=== PATIENT | female | born 1975 | race Caucasian/White ===

== ENCOUNTER → 2019-08-04 | Outpatient (CLI) | payer BC | END | disposition home or self-care (01) | LOC: LABPAT 11:41 | PROVIDERS: ATTEND Obstetrics & Gynecology | DX: Z53.9 Procedure and treatment not carried out, unspecified reason (principal) ==

== ENCOUNTER 2019-08-09 07:51 | Observation (INO) | payer BC ==
[2019-08-04 12:29] LABS: Basophils # (A) 0.1 k/uL (0-0.2); Basophils % (A) 1 %; Eosinophils # (A) 0.2 k/uL (0-0.7); Eosinophils % (A) 3 %; HCT 40.1 % (34.0-46.0); HGB 13.3 gm/dL (11.4-16.0); Lymphocytes # (A) 1.5 k/uL (1.0-4.8); Lymphocytes % (A) 18 %; MCH 29.7 pg (25.0-35.0); MCHC 33.2 g/dL (31.0-37.0); MCV 89.5 fL (80.0-100.0); Mean Platelet Volume 5.7; Monocytes # (A) 0.4 k/uL (0-1.0); Monocytes % (A) 5 %; Neutrophils % (A) 72 %; Platelet Count 425 k/uL (150-450); RBC 4.48 m/uL (3.80-5.40); RDW 13.7 % (11.5-15.5); WBC 8.3 k/uL (3.8-10.6)
[2019-08-04 12:49] LABS: African American GFR (CKD) >90 (>60 ml/min/1.73 sqM); Anion Gap 9 mmol/L; Blood Urea Nitrogen 10 mg/dL (7-17); Calcium 9.9 mg/dL (8.4-10.2); Carbon Dioxide 30 mmol/L (22-30); Chloride 100 mmol/L (98-107); Glucose 92 mg/dL (74-99); Potassium 4.2 mmol/L (3.5-5.1); Sodium 139 mmol/L (137-145)
[~2019-08-09 07:51] MED LIST: DEXAMETHASONE SOD PHOSPHATE 10 MG/ML 1 ML VIAL IV ONE; LIDOCAINE 1% 20 ML VIAL (10MG/ML) FOR IV START INTRADERMA PRN; fentaNYL (PF) 50 MCG/ML 2 ML AMP IV PRN
--- NOTE | 2019-08-09 07:57 | P.HPOB ---
History of Present Illness H&P Date: 08/09/19 Chief Complaint: Pelvic pain, menorrhagia 43-year-old presents for total laparoscopic hysterectomy with da Farheen and diagnostic cystoscopy. She's been having pelvic pain, dysmenorrhea and menorrhagia. Diagnosed with adenomyosis by ultrasound and MRI. Review of Systems All systems: negative Constitutional: Denies chills, Denies fever Eyes: denies blurred vision, denies pain Ears, nose, mouth and throat: Denies headache, Denies sore throat Cardiovascular: Denies chest pain, Denies shortness of breath Respiratory: Denies cough Gastrointestinal: Denies abdominal pain, Denies diarrhea, Denies nausea, Denies vomiting Genitourinary: Denies dysuria, Denies hematuria Musculoskeletal: Denies myalgias Integumentary: Denies pruritus, Denies rash Neurological: Denies numbness, Denies weakness Psychiatric: Denies anxiety, Denies depression Endocrine: Denies fatigue, Denies weight change Past Medical History Past Medical History: Hypertension, Thyroid Disorder Additional Past Medical History / Comment(s): varicose veins, anemia (has had iron infusion), hx iodine radiation tx for thyroid,. Obstetric history: She's had 4 pregnancies, 1 spontaneous , 3 vaginal deliveries. History of Any Multi-Drug Resistant Organisms: None Reported Past Surgical History: Appendectomy, Cholecystectomy, Tonsillectomy, Tubal Ligation Additional Past Surgical History / Comment(s): D&C, Past Anesthesia/Blood Transfusion Reactions: Motion Sickness Smoking Status: Never smoker - Past Family History Mother Family Medical History: No Reported History Medications and Allergies Home Medications Medication Instructions Recorded Confirmed Type Ergocalciferol [Vitamin D2] 50,000 unit PO TH 08/06/19 08/06/19 History Hydrochlorothiazide 50 mg PO QAM 08/06/19 08/06/19 History Ibuprofen 200 mg PO DIRECTED PRN 08/06/19 08/06/19 History Allergies Allergy/AdvReac Type Severity Reaction Status Date / Time mold Allergy sinus Verified 08/06/19 08:14 pollen extracts Allergy sinus Verified 08/06/19 08:14 ragweed pollen Allergy sinus Verified 08/06/19 08:14 Exam Osteopathic Statement: *. No significant issues noted on an osteopathic structural exam other than those noted in the History and Physical/Consult. Heart: Regular rate and rhythm Lungs: Clear to auscultation bilaterally Abdomen: Soft, nontender Extremities: Negative Homans sign Results Result Diagrams: 08/04/19 11:50 08/04/19 11:50 Assessment and Plan (1) Pelvic pain Current Visit: Yes Status: Acute Code(s): R10.2 - PELVIC AND PERINEAL PAIN SNOMED Code(s): 85284745 (2) Menorrhagia Current Visit: Yes Status: Acute Code(s): N92.0 - EXCESSIVE AND FREQUENT MENSTRUATION WITH REGULAR CYCLE SNOMED Code(s): 795321820 (3) Adenomyosis Current Visit: Yes Status: Acute Code(s): N80.9 - ENDOMETRIOSIS, UNSPECIFIED SNOMED Code(s): 093623380 Plan: 1. Total laparoscopic hysterectomy with da Farheen, diagnostic cystoscopy.
[2019-08-09] MEDS: ONDANSETRON 4 MG/2 ML VIAL IVP ONE ×2 (08:19→11:39)
[2019-08-09] MEDS: LACTATED RINGERS 1,000 ML IV SCH ×2 (08:19→14:33)
[2019-08-09] MEDS ORDERED: MIDAZOLAM 2 MG/2 ML VIAL IVP ONE (08:30)
[2019-08-09] MEDS ORDERED: PROPOFOL 10 MG/ML 20 ML VIAL IV ONE (09:38)
[2019-08-09] MEDS ORDERED: fentaNYL (PF) 50 MCG/ML 2 ML AMP ONE (09:38)
[2019-08-09] MEDS ORDERED: LIDOCAINE 1% INJ 10MG/ML (20 ML MDV) ONE (09:38)
[2019-08-09] MEDS ORDERED: HYDROmorphone (PF) 1 MG/ML ONE (09:38)
[2019-08-09] MEDS ORDERED: LIDOCAINE 2%-EPI 1:100,000 20 ML VIAL ONE (09:38)
[2019-08-09] MEDS ORDERED: SUCCINYLCHOLINE CHLORIDE 100 MG/5 ML SYR IV ONE (09:38)
[2019-08-09] MEDS ORDERED: ROCURONIUM BROMIDE 10 MG/ML 10 ML VIAL IV ONE (09:38)
[2019-08-09] MEDS ORDERED: NEOSTIGMINE 1 MG/ML 10 ML VIAL ONE (09:38)
[2019-08-09] MEDS ORDERED: ROPIVACAINE 5 MG/ML 30 ML VIAL ONE (09:38)
[2019-08-09] MEDS ORDERED: MIDAZOLAM 2 MG/2 ML VIAL ONE (09:38)
[2019-08-09] MEDS ORDERED: GLYCOPYRROLATE 0.2 MG/ML 2 ML VIAL ONE (09:38)
[2019-08-09] MEDS ORDERED: BUPIVACAINE (PF) 0.25% 30 ML VIAL SQ ONE (10:10)
--- NOTE | 2019-08-09 11:28 | P.OP ---
Date of Procedure: 08/09/19 Preoperative Diagnosis: 1. Pelvic pain 2. Menorrhagia 3. Adenomyosis 4. Dysmenorrhea 5. Dyspareunia Postoperative Diagnosis: 1. Pelvic pain 2. Menorrhagia 3. Adenomyosis 4. Dysmenorrhea 5. Dyspareunia Procedure(s) Performed: Total laparoscopic hysterectomy with bilateral salpingectomy using da Farheen and diagnostic cystoscopy Anesthesia: DUDLEY Surgeon: Vania Ann Iron Bender #1: Uday Biggs Estimated Blood Loss (ml): 50 IV fluids (ml): 150 Urine output (ml): 350 Pathology: other (Uterus, cervix, bilateral fallopian tubes) Condition: stable Disposition: PACU Operative Findings: Uterus sounded to 11 cm. Normal-appearing fallopian tubes and ovaries. Description of Procedure: Patient taken the operating room where general anesthesia was obtained without difficulty. She is prepped and draped in normal sterile fashion dorsal lithotomy position, legs placed in the Jv stirrups. Weighted speculum placed in the vagina and the anterior lip the cervix was grasped with single-tooth tenaculum. The uterus sounded to 11 cm and the cervix diameter was 4 cm. The appropriate manipulator tip and ring were placed on the Keely manipulator. The Keely manipulator was then placed in the uterus. Daniels catheter was also placed. Attention was then turned to the abdomen and gloves were changed. A 5 mm supraumbilical incision was made the scalpel and a 5 mm optical trocar was placed under direct visualization. 10 cm to the right of this and 2 cm down a 5 mm incision was made and 8 mm da Farheen port was placed under direct visualization. Same measurements on the opposite side of the patient's abdomen, the 5 mm incision was made and 8 mm da Farheen port was placed under direct visualization. In the left upper quadrant a 10 mm incision was made and a 10 mm optical trocar was placed under direct visualization. The 5 mm optical trocar was then replaced with the 8 mm da Farheen camera port. The robot was docked on patient's right side. The camera was introduced and then the monopolar curved scissor and Maryland bipolar placed under direct visualization. I broke scrub and went to the physician console. The left mesosalpinx was cauterized with the Maryland bipolar and cut with monopolar curved scissors to free up the fallopian tube. The left round ligament and utero-ovarian ligaments were cauterized with the Maryland bipolar and cut with monopolar curved scissors. The posterior leaf of the broad ligament was taken down using the monopolar curved scissors. Anterior leaf of the broad ligament was then taken down using the monopolar curved scissors. The uterine artery was cauterized with the Maryland bipolar and cut with monopolar curved scissors. The bladder flap was then started using the monopolar curved scissors. Attention was then turned to the right side of the patient's anatomy and the right mesosalpinx was cauterized with the Maryland bipolar and cut with monopolar curved scissors to free up this fallopian tube. The right round ligament and utero-ovarian ligament were cauterized with the Maryland bipolar and cut with monopolar curved scissors. Posterior leaf of the broad ligament was taken down using the monopolar curved scissors and the anterior leaf was taken down using the monopolar curved scissors. The uterine artery was cauterized the Maryland bipolar cut with monopolar curved scissors. The bladder flap was then finished on this side. Anterior colpotomy was made using the monopolar curved scissors. The rest of the uterus was from the vaginal cuff by following the ring around with the monopolar curved scissors through the uterosacral ligaments back to the anterior portion. Once the uterus and cervix were amputated they were pulled through the vaginal cuff. Hemostasis was assured. The instruments were changed for the Cardier forcep and the jagjit suture cut. The vaginal cuff was then closed using O stratafix barbed suture in a running fashion. Hemostasis was again assured and the pelvis was irrigated. All instruments were removed from the abdomen and the robot was undocked. I scrubbed back in to perform a cystoscopy. There were jets from both ureteral orifices. The abdominal incisions were closed with 4-0 Vicryl in a subcuticular fashion. Patient tolerated the procedure well, sponge and instrument counts correct 2 and she was taken to recovery room in stable condition condition
[2019-08-09] MEDS: HYDROmorphone 0.5 MG/0.5 ML SYRINGE IVP PRN ×2 (11:39→11:55)
[2019-08-09] MEDS ORDERED: SIMETHICONE 80 MG CHEWABLE PO PRN (11:58)
[2019-08-09] MEDS ORDERED: ONDANSETRON 4 MG/2 ML VIAL IVP PRN (11:58)
[2019-08-09] MEDS ORDERED: ZOLPIDEM 5 MG TAB PO PRN (11:58)
[2019-08-09] MEDS ORDERED: METOCLOPRAMIDE 5 MG/ML 2 ML VIAL IVP PRN (11:58)
[2019-08-09] MEDS ORDERED: Acetaminophen-Codeine 300-30mg TAB PO PRN (11:58)
[2019-08-09 15:05] VITALS: BMI 32.4
[2019-08-09] MEDS: KETOROLAC 30 MG/ML 1 ML VIAL IVP PRN ×2 (15:17→21:13)
[2019-08-09] MEDS: Acetaminophen-Codeine 300-30mg TAB PO PRN ×2 (17:22→22:20)
[2019-08-09] MEDS: ARTIFICIAL TEARS-HYPROMELLOSE DROPS 15 ML BTL LEFT EYE SCH ×3 (17:54→22:20)
[2019-08-09] MEDS: SENNOSIDES-DOCUSATE SODIUM 1 EACH TAB PO SCH (20:03)
--- NOTE | 2019-08-09 21:51 | P.CON ---
Consult Note - . Consult date: 08/09/19 Assessment/Plan:: 43 y/o female post general anesthesia for hysterectomy who's left eye was notably uncomfortable today, after surgery. She denies having previous eye problems, and has not even had an eye exam in some time. She is currently using OTC reading glasses for her near work as her eyes become uncomfortable. On exam: External exam: right eye unremarkable, left with hand-held balled-up washcloth on eyelid which was mildly swollen, after washcloth removed. Vision: 20/20 right eye, and 20/30 left for distance, uncorrected Pupils: 3.5 mm bilateral without APD Cornea: mild inferior dryness and noted staining especially on left eye Conjunctiva: mild injection on left Anterior Chamber: Deep & quiet OU Iris: normal conformation. Lens: clear non-dilated Vitreous: clear Optic nerve: S/F/P Macula: normal foveolar light reflex A:1) Superficial corneal abrasion, left eye, noninfectious 2) dry eye, OU 3) presbyopia, normal age-related changes P:1) begin artificial tears multiple times daily to improve comfort. May use tears often today, and gradually withdraw and symptoms improve. Expect 24-48 of discomfort and decreased vision in left eye. Will see again in morning. 2) recommend full eye exam and at minimum a decent refraction to accommodate the vision complaints. - may see on discharge in office. Thank you for this consult.
[2019-08-10] MEDS: KETOROLAC 30 MG/ML 1 ML VIAL IVP PRN ×2 (04:21→10:05)
[2019-08-10] MEDS: ARTIFICIAL TEARS-HYPROMELLOSE DROPS 15 ML BTL LEFT EYE SCH ×5 (04:40→10:07)
--- NOTE | 2019-08-10 07:00 | P.DS ---
Providers Date of admission: 08/09/19 23:55 Expected date of discharge: 08/10/19 Attending physician: Vania Ann Consults: 08/09/19 15:32 Consult Physician Urgent Consulting Provider: Billy Mccoy Consult Reason/Comments: irritation left eye Do you want consulting provider notified?: Yes Primary care physician: Camilo Eubanks - Discharge Diagnosis(es) (1) Pelvic pain Current Visit: Yes Status: Resolved (2) Menorrhagia Current Visit: Yes Status: Resolved (3) Adenomyosis Current Visit: Yes Status: Resolved (4) History of robot-assisted laparoscopic hysterectomy Current Visit: Yes Status: Acute (5) Eye abrasion Current Visit: Yes Status: Acute Hospital Course: Pt presented for [facility] BS with da lakeshia. She underwent this procedure and postoperatively complained of some eye discomfort. I consulted Dr Mccoy who beatrice gnosed an abrasion and gave her some eye drops-tears. She will follow up with him outpatient. Today her eye feels better and her surgical pain is controlled. She will be discharged home POD #1 in stable condition to follow up wiht me in 3 weeks. Plan - Discharge Summary Discharge Rx Participant: No New Discharge Prescriptions: New Ibuprofen [Motrin] 600 mg PO Q6HR PRN #30 tab PRN Reason: Mild Pain Or Fever >= 100.5 Acetaminophen-Codeine 300-30mg [Tylenol w/codeine #3] 2 each PO Q6HR PRN #20 tab PRN Reason: Severe Pain No Action Hydrochlorothiazide 50 mg PO QAM Ergocalciferol [Vitamin D2] 50,000 unit PO TH Ibuprofen 200 mg PO DIRECTED PRN PRN Reason: Pain Discharge Medication List Ergocalciferol [Vitamin D2] 50,000 unit PO TH 08/06/19 [History] Hydrochlorothiazide 50 mg PO QAM 08/06/19 [History] Ibuprofen 200 mg PO DIRECTED PRN 08/06/19 [History] Acetaminophen-Codeine 300-30mg [Tylenol w/codeine #3] 2 each PO Q6HR PRN #20 tab 08/10/19 [Rx] Ibuprofen [Motrin] 600 mg PO Q6HR PRN #30 tab 08/10/19 [Rx] Follow up Appointment(s)/Referral(s): Billy Mccoy MD [STAFF PHYSICIAN] - 1 Week Vania Ann DO [Doctor of Osteopathic Medicine] - 3 Weeks Activity/Diet/Wound Care/Special Instructions: 1) continue with artificial tears, 1 drop 4 times daily, in each eye. Discharge Disposition: HOME SELF-CARE
[2019-08-10 07:11] LABS: Basophils % (A) 0 %; Eosinophils # (A) 0.1 k/uL (0-0.7); Eosinophils % (A) 1 %; HCT 35.4 % (34.0-46.0); HGB 11.8 gm/dL (11.4-16.0); Lymphocytes # (A) 1.8 k/uL (1.0-4.8); Lymphocytes % (A) 16 %; MCH 30.4 pg (25.0-35.0); MCHC 33.3 g/dL (31.0-37.0); MCV 91.4 fL (80.0-100.0); Mean Platelet Volume 5.5; Monocytes # (A) 0.5 k/uL (0-1.0); Monocytes % (A) 5 %; Neutrophils # (A) 8.8 k/uL (1.3-7.7); Neutrophils % (A) 77 %; Platelet Count 355 k/uL (150-450); RBC 3.88 m/uL (3.80-5.40); RDW 14.1 % (11.5-15.5); WBC 11.5 k/uL (3.8-10.6)
[2019-08-10] MEDS: SENNOSIDES-DOCUSATE SODIUM 1 EACH TAB PO SCH (08:05)
[2019-08-10 08:06] VITALS: RESP 18; TEMP 98.5
[2019-08-10] MEDS ORDERED: HYDROCHLOROTHIAZIDE 50 MG TAB PO SCH (09:00)
[2019-08-10 10:28] VITALS: BP 129/85; PULSE 63
--- NOTE | 2019-08-10 11:43 | P.CON ---
Consult Note - . Consult date: 08/10/19 Assessment/Plan:: 43 y/o female with left eye corneal abrasion following surgery today is more comfortable after beginning artificial tears. Va: 20/20 OD, 20/20-3 OS Ext: unremarkable Conjunctiva: white/quiet Cornea: clear OD, and trace fluorescein stain, left A: superficial corneal abrasion, healing well P: continue with tears regularly and recommend follow up within the week. Likely will need full examination as there is likely a need for glasses for nighttime driving andage-related presbyopia.
--- NOTE | 2019-08-10 22:48 | P.ANPRN ---
Procedure Note - Anesthesia - Nerve Block Performed Bilateral Transversus Abdominis Single Time Out Performed: Yes Date of Procedure: 08/09/19 Procedure Start Time: : Procedure Stop Time: : Location of Patient Procedure: PreOp Indication: Acute Post-Operative Pain, Requested by Surgeon Sedation Type: Sedate with meaningful contact maintained Preparation: Sterile Prep Position: Supine Needle Types: Pajunk Needle Gauge: 21 Ultrasound used to visualize needle placement: Yes Ultrasound used to observe medication spread: Yes Blood Aspirated: No Pain Paresthesia on Injection Noted: No Resistance on Injection: Normal Image Stored and Saved: Yes Events: Uneventful and Well Tolerated (ropi .5% 15cc plus xylo 2% 10cc)
== END 2019-08-10 11:51 | disposition home or self-care (01) ==
LOC: OR 07:51 → 6PED 11:08 → OR 23:54 → 6PED 23:55
PROVIDERS: ADMIT Obstetrics & Gynecology; ATTEND Obstetrics & Gynecology
DX: N80.0 Endometriosis of uterus (principal); N94.6 Dysmenorrhea, unspecified; N92.0 Excessive and frequent menstruation with regular cycle; N94.10 Unspecified dyspareunia; N83.8 Other noninflammatory disorders of ovary, fallopian tube and broad ligament; R10.2 Pelvic and perineal pain; I10 Essential (primary) hypertension; E07.9 Disorder of thyroid, unspecified; I83.90 Asymptomatic varicose veins of unspecified lower extremity; D64.9 Anemia, unspecified; Z91.048 Other nonmedicinal substance allergy status; Z79.899 Other long term (current) drug therapy; Z90.49 Acquired absence of other specified parts of digestive tract; Z98.51 Tubal ligation status
CPT/HCPCS: 58571; S2900; 36415; 64488; 76942; 80048; 81025; 85025; 86850; 86900; 86901; 88307

== ENCOUNTER → 2022-03-11 | Outpatient (CLI) | payer BC ==
[2022-03-11 09:18] VITALS: BP 133/94; PULSE 81; RESP 18; TEMP 97.9
--- NOTE | 2022-03-11 09:21 | P.CON ---
Consult Note - . Consult date: 03/11/22 Assessment/Plan:: HISTORY OF PRESENT ILLNESS: 46 yr old female as a referral from Dr. Mulligan presents today with chronic & severe LBP secondary to DDD, spinal stenosis and facet arthropathy for evaluation. She states her pain level is 3 out of 10 in intensity, dull, sore in the lower aspects of her lumbar spine at times where it meets her tailbone with radiation of pain down the right lower extremity. Patient states pain is provoked with standing. Pain is relieved with medications (ibuprofen), topicals, ice, heat, physical therapy which she is currently in, daily home exercise regimen, repositioning and rest. Past Medical History: Hypertension, Thyroid Disorder, Varicosities Past Surgical History: Appendectomy, Cholecystectomy, Tonsillectomy, Tubal Ligation, D&C, L Corneal Abrasion, Iron Deficiency Anemia with Iron Infusion, Iodine Radiation Treatment for Thyroid Social History: Never smoker, No ETOH abuse, No illicit drug use. Family History: Mother- No Reported History All: See list Meds: See list REVIEW OF ORGAN SYSTEMS: CONSTITUTIONAL: No fevers or chills. No recent weight loss. HEENT: No visual acuity loss, eye pain, difficulties with hearing. No nosebleeds. No difficulty swallowing. RESPIRATORY: Denies any troubles with breathing or dyspnea on exertion. CARDIOVASCULAR: Denies any chest pain, palpitations, or recent heart attacks. GASTROINTESTINAL: Denies fatty food intolerance. Has change in bowel habits and gas bloat. GENITOURINARY: Denies any blood in urine. Has increased urinary frequency. NEUROLOGICAL: + numbness and tingling along the distal extremities. No seizure disorders or headaches. MUSCULOSKELETAL: + back pain SKIN: No skin cancer. No rash. PSYCHIATRIC: Denies current depression or suicidal thoughts. ENDOCRINE: Denies current thyroid disorders. Denies any blood sugar glucose intolerance. HEME/LYMPHATIC: Denies any lumps and bumps around the neck. History of deep venous thrombosis. ALLERGY/IMMUNOLOGY: No immunoglobulin therapy. No immune deficiencies. BREAST: Denies current breast lumps, pain or nipple discharge. Physical Examinations : Constitutional : Cooperative , not in acute distress . HEENT: Neck supple. No Lymphadenopathy. Normal thyroid size . Eyes no ptosis , no icterus, no photophobia . Hearing intact. Normal oropharynx. No Thrush. Respiratory : Chest clear to auscultations bilaterally. No wheezing. No rhonchi. Cardiovascular : Regular rate and rhythm , S1 / S2. No S3 . No S4. Gastrointestinal : Abdomen soft. No tenderness. Bowel sounds x 4. No organomegaly . Genitourinary : Deferred. Neurologic : Cranial nerve II to XII intact. No focal neurological deficits. Psychiatric : alert & oriented x 3. Matching mood & appropriate affect. Judgment & insight intact. Lymphatic No Lymphadenopathy. Musculoskeletal : Cervical Spine Motor strength in the deltoid and biceps: Normal right side. Normal Left side Motor strength biceps and the wrist extensors: Normal right side . Normal left side Motor strength in the triceps muscle: Normal right side. Normal left side Deep tendon reflexes: Normal at the b iceps. Normal at Brachioradialis. Normal at triceps Cervical facet loading test: positive bilaterally Spurling test: positive bilaterally Neck distraction test: positive bilaterally Elida sign: positive bilaterally Lumbar spine Motor strength lower extremities ,thigh and legs 5/5 Right side , 5/5 Left side Deep tendon reflexes : Normal Knee Jerk. Normal Ankle Jerk Vertebral body tenderness over L4, L5 Lumbar facet Loading Test: positive Right / positive Left Range of motion of the lumbar spine Flexion 30 degrees, extension 10 degrees Straight Leg Raise test: Left/ Right positive at 30 degree Malcolm test: positive right / positive left. Severe tenderness over the Sacroiliac joint on the Right / Left sides Gaenslen test: positive bilaterally Seated flexion test: positive bilaterally. Sacral spine : Severe tenderness over the Sacroiliac joint: right side / left side Range of motion: Flexion of the lumbar spine <60 degrees Range of motion: Extension of the lumbar spine <20 degrees Gaenslen's Test positive Ignacio's Test positive Malclom test: positive right side / left side Thigh Thrust Test Sacral Thrust Test Imaging: MRI without contrast of the Lumbar spine from 12/22/21 reviewed Assessment/ Plan : Lumbar DDD, Lumbar facet arthropathy Recommendation of LESI L4-L5. May need a series of injections, up to 3 within a 6 mo period, for optimal pain relief. Risks, benefits of procedure discussed and patient verbalized understanding. May consider a R TFESI L4-L5 if the aforementioned is suboptimal. Denies aspirin or anti- coagulant use or medical history of diabetes. All questions answered. I have spent greater than 50 minutes on patient care today. Dr Anthony was available by phone for the evaluation of this patient. The time was used to review the medical records including relevant urine studies and Prescription history (MAPs), review of the available imaging, evaluation and examination of the patient, coordination of care with the medical staff and if applicable referring physicians, as well as creation of the medical record PQRS Measure Charge Sheet Mode of Arrival: Ambulatory - Pain Location Right Lower Back Non-Pharmacological Interventions: Heat, Home Exercise, Ice, Stretching Pharmacological Interventions: PRN Medication, Topical Medication PQRS Narrative: Smoking Status Former smoker Blood Pressure 133/94 Pain Intensity [Right Lower 3 Back] Scale Used Numeric (1 - 10) Hx Alcohol Use (MH) No Home Medications: Ambulatory Orders Ergocalciferol [Vitamin D2] 50,000 unit PO TH 08/06/19 Ibuprofen 200 mg PO DIRECTED PRN 08/06/19 hydroCHLOROthiazide 50 mg PO QAM 08/06/19 Acetaminophen-Codeine 300-30mg [Tylenol w/codeine #3] 2 each PO Q6HR PRN #20 tab 08/10/19 Ibuprofen [Motrin] 600 mg PO Q6HR PRN #30 tab 08/10/19
== END ==
LOC: PNWHC3 08:39
PROVIDERS: ATTEND Specialist
DX: M51.24 Other intervertebral disc displacement, thoracic region (principal); M43.16 Spondylolisthesis, lumbar region; M51.16 Intervertebral disc disorders with radiculopathy, lumbar region; M47.26 Other spondylosis with radiculopathy, lumbar region; Z87.891 Personal history of nicotine dependence; I10 Essential (primary) hypertension; Z91.09 Other allergy status, other than to drugs and biological substances
CPT/HCPCS: 99211

== ENCOUNTER 2022-04-20 09:04 | Day surgery (SDC) | payer BC ==
[2022-04-14 15:49] VITALS: BMI 32.1
[~2022-04-20 09:04] MED LIST changes: -DEXAMETHASONE SOD PHOSPHATE 10 MG/ML 1 ML VIAL IV ONE; +LACTATED RINGERS 1,000 ML IV SCH; -LIDOCAINE 1% 20 ML VIAL (10MG/ML) FOR IV START INTRADERMA PRN; -fentaNYL (PF) 50 MCG/ML 2 ML AMP IV PRN
[2022-04-20 09:24] VITALS: TEMP 96.9
[2022-04-20] MEDS ORDERED: fentaNYL (PF) 50 MCG/ML 2 ML AMP ONE (09:28)
[2022-04-20] MEDS ORDERED: MIDAZOLAM 2 MG/2 ML VIAL ONE (09:28)
[2022-04-20] MEDS ORDERED: ROPIVACAINE 5MG/ML 20ML VIAL ONE (09:28)
[2022-04-20] MEDS ORDERED: TRIAMCINOLONE ACETONIDE 40 MG/ML 1 ML VIAL ONE (09:28)
[2022-04-20] MEDS ORDERED: IOPAMIDOL M200 10 ML VIAL ONE (09:28)
--- NOTE | 2022-04-20 09:40 | P.PCN ---
Date of Procedure: 04/20/22 Surgeon: Joselin Graves Pathology: none sent Condition: stable Disposition: PACU Description of Procedure: PREOPERATIVE DIAGNOSIS: 1-Lumbar radiculopathy 2- Lumber Degenerative Disc Diseases. POSTOPERATIVE DIAGNOSIS: 1-Lumbar radiculopathy. 2-Lumbar Degenerative Disc Diseases PROCEDURE 1. Lumbar epidural steroid injection under fluoroscopic guidance at the L4-5 level. 2. Lumbar epidurogram. ANESTHESIA: Local with 1% lidocaine; and IV moderate conscious sedation with Versed and fentanyl EBL: Minimal PROCEDURE INDICATION: The patient with low back pain and radiculitis symptoms unresponsive to conservative treatment. Fluoroscopy was used to optimize visualization of the needle placement and to maximize safety. PROCEDURE DESCRIPTION / TECHNIQUE: The patient was seen and identified in the preoperative area. Risks, benefits, complications including but not limited to infections ,bleeding ,allergic reaction to the medications ,nerve damage and not complete pain relief , and alternatives were discussed with the patient. The patient agreed to proceed with the procedure and signed the consent. IV was started, and vital signs were stable. Patient was taken to the OR and time out was completed. The patient was placed in the prone position on procedure table and a pillow was placed under the abdomen to reduce lumbar lordosis. The lumbosacral area was prepped and draped in the usual sterile fashion with ChloraPrep.Patient was closely monitored during the procedure. Conscious sedation was used during the procedure to decrease patients anxiety. Vital signs were monitered during the entire procedure. Using anterior-posterior fluoroscopy, the L4-5 interlaminar space was identified and the skin over this site was marked and then infiltrated with 1% lidocaine subcutaneously. Subsequently, a 20-gauge Tuohy epidural needle was inserted and advanced toward the epidural space using the Loss of resistance to air technique and guided by AP and lateral fluoroscopy. The correct needle position in the epidural space was verified with the injection of 1 mL of the water soluble contrast dye Omnipaque 180 contrast and observing an excellent epidurogram with the epidural spread of the dye, after negative aspiration for blood and CSF and in the absence of paresthesias. Again after negative aspiration, a 8 ml mixture containing 80 mg of Kenalog and 5 ml of preservative free Normal Saline, and 2 ml of preservative free Ropivacaine 0.5% solution was injected and a washout of epidurogram was seen. Needle was withdrawn intact, skin was cleansed, and bandages were applied. patient tolerated procedure well and was transferred to PACU in stable condition.A copy of the needle placement picture was saved to the fluoroscopy machine. COMPLICATIONS: None
[2022-04-20] MEDS ORDERED: IV FLUID CONTINUATION 800 ML IV ONE (09:45)
[2022-04-20] MEDS ORDERED: LACTATED RINGERS 1,000 ML IV ONE (09:45)
[2022-04-20 09:50] VITALS: RESP 16
[2022-04-20 10:07] VITALS: BP 114/77; PULSE 65
--- NOTE | 2022-04-20 10:15 | FL ---
Fluoroscopy HISTORY: Pain 5 seconds fluoroscopy time supplied to the referring clinician. 0 intraoperative C-arm images docume nt the procedure. See dictated report from anesthesia.
== END 2022-04-20 10:29 | disposition home or self-care (01) ==
LOC: ORPAIN 09:04
PROVIDERS: ATTEND Anesthesiology
DX: M51.16 Intervertebral disc disorders with radiculopathy, lumbar region (principal); Z79.899 Other long term (current) drug therapy; Z91.09 Other allergy status, other than to drugs and biological substances; Z87.891 Personal history of nicotine dependence
CPT/HCPCS: 62323; J2250; J3301; J3010; Q9966; J2795

== ENCOUNTER → 2022-05-10 | Outpatient (CLI) | payer BC ==
--- NOTE | 2022-05-10 14:27 | P.PAINPG ---
PQRS Measure Charge Sheet Comment: A 46 yr old female with a history of severe and chronic low back pain secondary to lumbar degenerative disc diseases and lumbar spondylosis with facet arthropathy presents today for evaluation s/p LESI L4-L5. She states she received 85% pain relief and currently is very much pain free s/p procedure. Pain level is currently at 1/10 but escalates as high as 5/10 w provocation. Pain is constant, waxes & wanes, burning in the mid aspects of her lumbar spine w radiation of pain towards the hips. Pain is provoked by sitting/laying still for periods of 30 min or more. Pain is alleviated with PT integrated with massage currently in , heat, ice, medications (Ibuprofen), topicals, repositioning and rest. Interventional pain procedures completed include LESI L4-5 Patient is currently on Ibuprofen prn Patient denies any side effects of the medication(s), denies excessive drowsiness or sleepiness, denies suicidal ideation and reports that the current pain medication is helping to control the pain and improve activities of daily living. Patient denies any motor or sensory deficits. Patient denies any fever or night sweats, denies any change in the bowel movements or urination. Physical Examination: -Constitutional: Cooperative. Not in acute distress . - Neurologic: Cranial nerve II to XII intact. No focal neurological deficits. - Psychatric: Alert & oriented x 3. Matching mood & appropriate affect. Judgment and insight intact. - Musculoskeletal: Cervical spine: Muscle bulk/ tone/ strength in the bilateral upper extremities normal Vertebral body tenderness to palpation over Spurling test positive Distraction test positive Facet loading test positive Thoracic spine Muscle bulk / tone/ strength in the bilateral paraspinal muscles normal Vertebral body tender to palpation over Facet loading test positive Lumbar spine: Motor bulk/ tone/ strength lower extremities , thigh and legs : 5/5 Deep tendon reflexes : Normal Knee Jerk. Normal Ankle Jerk . Vertebral body tenderness to palpation over L1, L2 Lumbar Facet Loading Test positive Straight Leg Raise: positive at 30 degrees right side/ left side Gaenslen's Test positive Sacral spine : Severe tenderness over the Sacroiliac joint: right side / left side Range of motion: Flexion of the lumbar spine <60 degrees Range of motion: Extension of the lumbar spine <20 degrees Gaenslen's Test positive Ignacio's Test positive Malcolm test: positive right side / left side Thigh Thrust Test Sacral Thrust Test Assessment and plan: Chronic low back pain secondary to lumbar degenerative disc disease , lumbar spondylosis with facet arthropathy without myelopathy Recommendation of LESI L1-L2. May need a series of injections, up to 3 within a six-month timeframe, for optimal pain relief. Risks, benefits of procedure discussed and pt verbalized understanding. Denies anticoagulant use or medical history of diabetes. All patient questions answered MAPS reviewed and it was appropriate. I have spent less than 30 minutes on patient care today. Dr Anthony was available by phone for the evaluation of this patient. The time was used to review the medical records including relevant urine studies and Prescription history (MAPs), review of the available imaging, evaluation and examination of the patient, coordination of care with the medical staff and if applicable referring physicians, as well as creation of the medical record PQRS Narrative: Smoking Status Former smoker Hx Alcohol Use (MH) No Home Medications: Ambulatory Orders Ergocalciferol [Vitamin D2] 50,000 unit PO TH 08/06/19 Ibuprofen 200 mg PO DIRECTED PRN 08/06/19 hydroCHLOROthiazide 50 mg PO QAM 08/06/19 Albuterol Inhaler [Ventolin Hfa Inhaler] 1 puff INHALATION DIRECTED PRN 04/14/22 Breeza Inhaler 1 puff IH QAM 04/14/22 Potassium Chloride [K-Tab ER] 20 meq PO DAILY 04/14/22 Controlled Substance Measures - Controlled Substance Measures Is patient prescribed a controlled substance at discharge?: No
[2022-05-10 14:33] VITALS: BP 128/86; PULSE 90; RESP 18; TEMP 98.5
== END ==
LOC: PNWHC3 14:07
PROVIDERS: ATTEND Specialist
DX: G89.29 Other chronic pain (principal); M51.36 Other intervertebral disc degeneration, lumbar region; M47.816 Spondylosis without myelopathy or radiculopathy, lumbar region; Z87.891 Personal history of nicotine dependence; Z88.8 Allergy status to other drugs, medicaments and biological substances; Z91.09 Other allergy status, other than to drugs and biological substances
CPT/HCPCS: 99211

== ENCOUNTER 2022-06-15 11:24 | Day surgery (SDC) | payer BC ==
[2022-06-15] MEDS ORDERED: LACTATED RINGERS 1,000 ML IV ONE (11:50)
[2022-06-15 11:53] VITALS: TEMP 98.5
[2022-06-15] MEDS ORDERED: LIDOCAINE 1% (10MG/ML) FOR IV START INTRADERMA PRN (12:03)
[2022-06-15] MEDS ORDERED: LACTATED RINGERS 1,000 ML IV SCH (12:03)
[2022-06-15] MEDS ORDERED: MIDAZOLAM 2 MG/2 ML VIAL ONE (12:40)
[2022-06-15] MEDS ORDERED: IOPAMIDOL M200 10 ML VIAL ONE (12:40)
[2022-06-15] MEDS ORDERED: fentaNYL (PF) 50 MCG/ML 2 ML AMP ONE (12:40)
[2022-06-15] MEDS ORDERED: methylPREDNISolone ACETATE 80 MG/ML 1 ML VIAL ONE (12:40)
[2022-06-15] MEDS ORDERED: IV FLUID CONTINUATION 1,000 ML IV ONE (12:50)
--- NOTE | 2022-06-15 12:50 | P.PCN ---
Date of Procedure: 06/15/22 Procedure(s) Performed: PREOPERATIVE DIAGNOSIS: 1- Lumbar Degenerative Disc Diseases 2-Lumbar spondylosis with Facet arthropathy without myelopathy. 3-lumbar radiculopathy POSTOPERATIVE DIAGNOSIS: Same as preop diagnosis. PROCEDURE 1. Lumbar epidural steroid injection under fluoroscopic guidance at the L1-L2 level. (Fluoroscopy imaging was available in radiology department) 2. Lumbar epidurogram. ANESTHESIA: moderate sedation with intravenous Versed 2 mg ,and fentanyle 100 Mcg Sedation start time : 1240 Sedation end time : 1246 EBL: Minimal PROCEDURE INDICATION: The patient with low back pain and radiculitis symptoms unresponsive to conservative treatment. Fluoroscopy was used to optimize visualization of the needle placement and to maximize safety. PROCEDURE DESCRIPTION / TECHNIQUE: The patient was seen and identified in the preoperative area. Risks, benefits, complications including but not limited to infections ,bleeding ,allergic reaction to the medications ,nerve damage and not complete pain releife , and alternatives were discussed with the patient. The patient agreed to proceed with the procedure and signed the consent. IV was started, and vital signs were stable. Patient was taken to the OR and time out was completed. The patient was placed in the prone position on procedure table and a pillow was placed under the abdomen to reduce lumbar lordosis. The lumbosacral area was prepped and draped in the usual sterile fashion.ere closely monitored during the procedure. Conscious sedation was used during the procedure to decrease patients anxiety. Vital signs was monitered during the entire procedure. Using anterior-posterior fluoroscopy, the L1-2 interlaminar space was identified and the skin over this site was marked and then infiltrated with 1% lidocaine subcutaneously. Subsequently, a 20-gauge Tuohy epidural needle was inserted and advanced toward the epidural space using the ``Loss of resistance technique and guided by AP and lateral fluoroscopy. The correct needle position in the epi dural space was verified with the injection of 2 mL of the water soluble contrast dye Isovue 200 contrast and observing an excellent epidurogram with the epidural spread of the dye, after negative aspiration for blood and CSF and in the absence of paresthesias. Again after negative aspiration, a 6 ml mixture containing 80 mg of Depo-medrol , and 2 ml of preservative free Normal Saline, and 2 ml of preservative free lidocaine 1% solution was injected and a washout of epidurogram was seen. Needle was withdrawn intact, skin was cleansed, and bandages were applied. COMPLICATIONS: None DISPOSITION / PLANS: The patient was placed in a supine position and transferred to the recovery area in a stable condition for observation. There was no evidence of lower extremity motor or sensory deficit after the procedure. Patient was discharged from the recovery room after meeting discharge criteria. Home discharge instructions were given to the patient by the staff. The patient was reexamined prior to discharge. The patient will schedule a follow up in the clinic in 2-4 weeks.
[2022-06-15 12:58] VITALS: RESP 18
--- NOTE | 2022-06-15 12:59 | FL ---
Intraoperative/procedural fluoroscopic services were provided for lumbar epidural injection. Total fl uoroscopy time is 3 seconds with a total of 1 submitted image to PACS. Please see the operative note for further details.
[2022-06-15 13:09] VITALS: BP 128/70; PULSE 78
== END 2022-06-15 13:22 | disposition home or self-care (01) ==
LOC: ORPAIN 11:24
PROVIDERS: ATTEND Specialist
DX: M51.16 Intervertebral disc disorders with radiculopathy, lumbar region (principal); M47.26 Other spondylosis with radiculopathy, lumbar region
CPT/HCPCS: 62323; J2250; J1040; J3010; Q9966

== ENCOUNTER → 2022-07-07 | Outpatient (CLI) | payer BC ==
[2022-07-07 14:22] VITALS: BP 124/89; PULSE 87; RESP 18
--- NOTE | 2022-07-07 15:13 | P.PAINPG ---
Objective - Vital Signs Vital signs: Vital Signs Temp Pulse 87 07/07/22 14:18 Resp 18 07/07/22 14:18 BP 124/89 07/07/22 14:18 Pulse Ox 97 07/07/22 14:18 FiO2 Intake & Output 07/06/22 07/07/22 07/07/22 18:59 06:59 18:59 Weight 81.647 kg PQRS Measure Charge Sheet Mode of Arrival: Ambulatory Comment: A 46 yr old female with a history of severe and chronic low back pain secondary to lumbar degenerative disc diseases and lumbar spondylosis with facet arthropathy without myelopathy presents today for evaluation s/p RUSSELL L1-L2. Pt states she experienced 75% pain relief x 3 wks s/p procedure. Pain level is currently at 2/10 in intensity, constant, localized in the mid to lower lumbar spine, burning in character w shooting towards the BLEs when standing. Pain is provoked by standing form a sitting position. Pain is alleviated with medication (Motrin OTC), injections in the past, alternating heat and ice, physical therapy which she is currently in, massage therapy integrated with PT once a week, daily home stretching regimen, repositioning and rest. Interventional pain procedures completed include RUSSELL L1-L2 x1. Patient is currently on Motrin Patient denies any side effects of the medication(s), denies excessive drowsiness or sleepiness, denies suicidal ideation and reports that the current pain medication is helping to control the pain and improve activities of daily living. Patient denies any motor or sensory deficits. Patient denies any fever or night sweats, denies any change in the bowel movements or urination. Physical Examination: -Constitutional: Cooperative. Not in acute distress . - Neurologic: Cranial nerve II to XII intact. No focal neurological deficits. - Psychatric: Alert & oriented x 3. Matching mood & appropriate affect. Judgment and insight intact. - Musculoskeletal: Cervical spine: Muscle bulk/ tone/ strength in the bilateral upper extremities normal Vertebral body tenderness to palpation over Spurling test positive Distraction test positive Facet loading test positive Thoracic spine Muscle bulk / tone/ strength in the bilateral paraspinal muscles normal Vertebral body tender to palpation over Facet loading test positive Lumbar spine: Motor bulk/ tone/ strength lower extremities , thigh and legs : 5/5 Deep tendon reflexes : Normal Knee Jerk. Normal Ankle Jerk . Vertebral body tenderness to palpation over L4 Lumbar Facet Loading Test positive Straight Leg Raise: positive at 30 degrees right side/ left side Gaenslen's Test positive Sacral spine : Severe tenderness over the Sacroiliac joint: right side / left side Range of motion: Flexion of the lumbar spine <60 degrees Range of motion: Extension of the lumbar spine <20 degrees Gaenslen's Test positive Ignacio's Test positive Malcolm test: positive right side / left side Thigh Thrust Test Sacral Thrust Test Assessment and plan: Chronic low back pain secondary to lumbar degenerative disc disease , lumbar spondylosis with facet arthropathy without myelopathy Recommendation of RUSSELL L4-L5 #3. May need a series of injections, up to 3 within a 6 mo period, for optimal pain relief. Risks, benefits of procedure discussed and pt verbalized understanding. Admits to anticoagulant use or medi fabiana history of diabetes. Protocol for discontinuation/ continuation of medications diana procedure discussed. All patient questions answered MAPS reviewed and it was appropriate. I have spent less than 30 minutes on patient care today. Dr Anthony was available by phone for the evaluation of this patient. The time was used to review the medical records including relevant urine studies and Prescription history (MAPs), review of the available imaging, evaluation and examination of the patient, coordination of care with the medical staff and if applicable referring physicians, as well as creation of the medical record - Pain Location Right Lower Back Non-Pharmacological Interventions: Heat, Home Exercise, Ice, Massage, Physical Therapy, Stretching Pharmacological Interventions: Epidural, PRN Medication PQRS Narrative: Smoking Status Former smoker Blood Pressure 124/89 Pain Intensity [Right Lower 2 Back] Scale Used Numeric (1 - 10) Hx Alcohol Use (MH) No Home Medications: Ambulatory Orders Ergocalciferol [Vitamin D2] 50,000 unit PO TH 08/06/19 Ibuprofen 200 mg PO DIRECTED PRN 08/06/19 hydroCHLOROthiazide 50 mg PO QAM 08/06/19 Albuterol Inhaler [Ventolin Hfa Inhaler] 1 puff INHALATION DIRECTED PRN 04/14/22 Breeza Inhaler 1 puff IH QAM 04/14/22 Potassium Chloride [K-Tab ER] 20 meq PO DAILY 04/14/22 Controlled Substance Measures - Controlled Substance Measures Is patient prescribed a controlled substance at discharge?: No
== END ==
LOC: PNWHC3 14:02
PROVIDERS: ATTEND Specialist
DX: M51.36 Other intervertebral disc degeneration, lumbar region (principal); M47.816 Spondylosis without myelopathy or radiculopathy, lumbar region; G89.29 Other chronic pain; Z87.891 Personal history of nicotine dependence; Z88.8 Allergy status to other drugs, medicaments and biological substances; Z91.09 Other allergy status, other than to drugs and biological substances
CPT/HCPCS: 99211

== ENCOUNTER → 2022-08-09 | Outpatient (CLI) | payer BC ==
--- NOTE | 2022-08-10 02:03 | MR ---
EXAMINATION TYPE: MR knee LT wo con DATE OF EXAM: 08/09/2022 COMPARISON: None HISTORY: Left knee pain and swelling. Multiplanar multiecho imaging of the left knee performed without contrast. There is new joint effusion and popliteal cyst. Popliteal cyst measures 5 x 1.5 cm. The patella is in tact. The posterior cruciate ligament is intact. There is wavy appearance of the anterior cruciate li gament consistent with complete tear. There is vertical tear through the posterior horn of the lateral meniscus extending to the inferior s urface. There is also horizontal tear of the lateral aspect of the lateral meniscus. There is a step deformity in the anterior horn of the lateral meniscus on the superior surface related to a large ful l thickness vertical tear. The medial meniscus appears intact. The medial and lateral collateral ligaments appear intact. There is however some fluid around the medial collateral ligament. No evidence of focal bone destruction. No evidence of a fracture. The patella is intact. IMPRESSION: Large complex horizontal and vertical tears of the entire lateral meniscus. No evidence of any signif icant tear of the medial meniscus. Moderate joint effusion and popliteal cyst. Complete tear anterior cruciate ligament. There is some fluid around the medial collateral ligament t hat could relate to a partial ligament sprain.
== END | disposition home or self-care (01) ==
LOC: RADMRIMAIN 14:57
PROVIDERS: ATTEND Orthopaedic Surgery
DX: S83.412A Sprain of medial collateral ligament of left knee, initial encounter (principal); S83.222A Peripheral tear of medial meniscus, current injury, left knee, initial encounter

== ENCOUNTER 2022-08-10 09:31 | Day surgery (SDC) | payer BC ==
[~2022-08-10 09:31] MED LIST changes: +LIDOCAINE 1% (10MG/ML) FOR IV START INTRADERMA PRN
[2022-08-10 10:09] VITALS: RESP 16; TEMP 97.6
[2022-08-10] MEDS ORDERED: LACTATED RINGERS 1,000 ML IV ONE (10:10)
[2022-08-10] MEDS ORDERED: fentaNYL (PF) 50 MCG/ML 2 ML AMP ONE (10:24)
[2022-08-10] MEDS ORDERED: methylPREDNISolone ACETATE 80 MG/ML 1 ML VIAL ONE (10:24)
[2022-08-10] MEDS ORDERED: MIDAZOLAM 2 MG/2 ML VIAL ONE (10:24)
[2022-08-10] MEDS ORDERED: IOPAMIDOL M200 10 ML VIAL ONE (10:24)
--- NOTE | 2022-08-10 10:36 | P.PCN ---
Date of Procedure: 08/10/22 Description of Procedure: Procedure: 1. L4-L5 Epidural steroid injection under fluoroscopic guidance 2. Lumbar epidurogram PREOPERATIVE DIAGNOSIS: Lumbar degenerative disc disease, and Lumbar radiculopathy. POSTOPERATIVE DIAGNOSIS: Lumbar degenerative disc disease, and Lumbar ra diculopathy. SURGEON: Jeanine Mercer ANESTHESIA: Local with 1% lidocaine, and IV sedation: Versed 2 mg, and fentanyl 100 g Sedation supervision start time: 1026 Sedation supervision ended time 10 32 EBL: None. Specimen removed: None Fluoroscopic image: saved to electronic medical records PROCEDURE INDICATION: The patient had history of Lumbar degenerative disc disease and Lumbar radiculopathy. Failed to conservative therapy. Presented for epidural steroid injection. PROCEDURE DESCRIPTION: The patient was seen and identified in the preoperative area. Risks, benefits, complications, and alternatives were discussed with the patient. The patient agreed to proceed with the procedure and signed the consent. IV was started, and vital signs were stable. Patient was taken to the procedure area, and time out was completed. The patient was placed in the prone position on procedure table and a pillow was placed under the abdomen to reduce lumbar lordosis. The lumbosacral area was prepped and draped in the usual sterile fashion. Critical pause was taken. Vital signs were closely monitored during the procedure. Using anterior-posterior fluoroscopy, the L4-L5 interlaminar space was identified, and skin and deeper tissues were localized with 1% lidocaine. Using anterior-posterior fluoroscopy, lateral fluoroscopy, and [id number] technique, a 20 gauge 3.5 Tuohy epidural needle entered the epidural space. After negative aspiration of CSF and blood with no paresthesias, 1 ml of [id number] contrast dye was injected and an excellent epidurogram was seen. Again after negative aspiration of CSF and blood with no paresthesias, 8 mL of block solution was injected into the epidural space. Block solution contained 80 mg of Depo-Medrol, and 7 mL of preservative-free normal saline. Needle was withdrawn intact, skin was cleansed, and bandages were applied. COMPLICATIONS: None. DISPOSITION / PLANS: The patient was placed in a supine position and transferred to the recovery area in a stable condition for observation. Patient was discharged from the recovery room after meeting discharge criteria. Home discharge instructions given to the patient by the staff. The patient was reexamined prior to discharge. The patient will schedule a follow up in the clinic in 4 weeks.
[2022-08-10] MEDS ORDERED: IV FLUID CONTINUATION 1,000 ML IV ONE ×2 (10:39)
[2022-08-10] MEDS ORDERED: LACTATED RINGERS 1,000 ML IV SCH (10:45)
[2022-08-10 10:55] VITALS: BP 124/85; PULSE 72
--- NOTE | 2022-08-10 11:29 | FL ---
Fluoroscopy HISTORY: Pain 3 seconds fluoroscopy time supplied to the referring clinician. 2 intraoperative C-arm images docume nt the procedure. See dictated report from anesthesia.
== END 2022-08-10 11:17 | disposition home or self-care (01) ==
LOC: ORPAIN 09:31
DX: M51.16 Intervertebral disc disorders with radiculopathy, lumbar region (principal); J45.909 Unspecified asthma, uncomplicated; I10 Essential (primary) hypertension; Z90.49 Acquired absence of other specified parts of digestive tract; Z79.899 Other long term (current) drug therapy
CPT/HCPCS: 62323; J2250; J1040; J3010; Q9966

== ENCOUNTER → 2022-09-22 | Outpatient (CLI) | payer BC ==
[2022-09-22 09:11] VITALS: BP 134/87; PULSE 72; RESP 18; TEMP 98.2
--- NOTE | 2022-09-22 14:23 | P.PAINPG ---
PQRS Measure Charge Sheet Comment: A 47 yr old female with a history of severe and chronic low back pain x years secondary to lumbar DDD and spondylosis with facet arthropathy without myelopathy presents today for evaluation s/p RUSSELL L4-L5. Pt states she experienced 50 % pain relief x 9 wks s/p procedure. Pain level is currently at 6 /10 in intensity, constant, localized in BL lower lumbar spine, stabbing in character w shooting towards the R flank. Pain is provoked by being in one position for periods of 20 min or more. Pain is alleviated with PT for her knee in Aug 2022, use of massage chair, alternating heat & ice, medications (Ibu), repositioning and rest. Interventional pain procedures completed include RUSSELL L4-L5 x1, L1-L2 x2. Patient is currently on Ibu Patient denies any side effects of the medication(s), denies excessive drowsiness or sleepiness, denies suicidal ideation and reports that the current pain medication is helping to control the pain and improve activities of daily living. Patient denies any motor or sensory deficits. Patient denies any fever or night sweats, denies any change in the bowel movements or urination. Physical Examination: -Constitutional: Cooperative. Not in acute distress . - Neurologic: Cranial nerve II to XII intact. No focal neurological deficits. - Psychatric: Alert & oriented x 3. Matching mood & appropriate affect. Judgment and insight intact. - Musculoskeletal: Cervical spine: Muscle bulk/ tone/ strength in the bilateral upper extremities normal Vertebral body tenderness to palpation over Spurling test positive Distraction test positive Facet loading test positive Thoracic spine Muscle bulk / tone/ strength in the bilateral paraspinal muscles normal Vertebral body tender to palpation over Facet loading test positive Lumbar spine: Motor bulk/ tone/ strength lower extremities , thigh and legs : 5/5 Deep tendon reflexes : Normal Knee Jerk. Normal Ankle Jerk . Vertebral body tenderness to palpation over L2 Lumbar Facet Loading Test positive Straight Leg Raise: positive at 30 degrees right side/ left side Gaenslen's Test positive Sacral spine : Severe tenderness over the Sacroiliac joint: right side / left side Range of motion: Flexion of the lumbar spine <60 degrees Range of motion: Extension of the lumbar spine <20 degrees Gaenslen's Test positive Malcolm test: positive right side / left side Thigh Thrust Test Sacral Thrust Test Assessment and plan: Chronic low back pain secondary to lumbar degenerative disc disease, spondylosis with facet arthropathy without myelopathy Recommendation of R paramedian L2-L3 RUSSELL. May need a series, up to 4 within a 12mo period, for optimal pain relief. Risks, benefits of procedure discussed and pt verbalized understanding. Admits to anticoagulant use or medical history of diabetes. Protocol for discontinuation / continuation of medications diana procedure discussed. All patient questions answered I have spent less than 30 minutes on patient care today. Dr Anthony was available by phone for the evaluation of this patient. The time was used to review the medical records including relevant urine studies and Prescription history (MAPs), review of the available imaging, evaluation and examination of the patient, coordination of care with the medical staff and if applicable referring physicians, as well as creation of the medical record PQRS Narrative: Smoking Status Former smoker Hx Alcohol Use (MH) No Home Medications: Ambulatory Orders Ergocalciferol [Vitamin D2] 50,000 unit PO TH 08/06/19 Ibuprofen 200 mg PO DIRECTED PRN 08/06/19 hydroCHLOROthiazide 50 mg PO QAM 08/06/19 Albuterol Inhaler [Ventolin Hfa Inhaler] 1 puff INHALATION DIRECTED PRN 04/14/22 Breeza Inhaler 1 puff IH QAM 04/14/22 Potassium Chloride [K-Tab ER] 20 meq PO DAILY 04/14/22 Controlled Substance Measures - Controlled Substance Measures Is patient prescribed a controlled substance at discharge?: No
== END ==
LOC: PNWHC3 08:38
PROVIDERS: ATTEND Specialist
DX: M47.816 Spondylosis without myelopathy or radiculopathy, lumbar region (principal); M51.36 Other intervertebral disc degeneration, lumbar region; G89.29 Other chronic pain; Z88.8 Allergy status to other drugs, medicaments and biological substances; Z91.018 Allergy to other foods; Z91.048 Other nonmedicinal substance allergy status; Z87.891 Personal history of nicotine dependence
CPT/HCPCS: 99211

== ENCOUNTER → 2022-10-21 | Day surgery (SDC) | payer BC ==
[~2022-10-21] MED LIST changes: +LACTATED RINGERS 1,000 ML IV ONE; -LIDOCAINE 1% (10MG/ML) FOR IV START INTRADERMA PRN; +ROPIVACAINE 5 MG/ML 20 ML AMPULE ONE; +TRIAMCINOLONE ACETONIDE 40 MG/ML 1 ML VIAL ONE
[2022-10-21 09:13] VITALS: RESP 16; TEMP 97.1
--- NOTE | 2022-10-21 09:41 | P.PCN ---
Date of Procedure: 10/21/22 Description of Procedure: Pre and postop diagnosis: Myofascial pain syndrome Procedure: Trigger point injections X 14 Muscle group X bilateral lumbar paraspinal, bilateral iliocostalis lumborum Surgeon: Jaenine Mercer Anesthesia: None Complications: None Estimated blood loss: None Specimen removed: None Procedure indications: Patient had a history of myofascial pain syndrome. Patient tried conservative therapy. Came here for intervention procedure for better pain relief. Procedure description: Patient was seen and identified in the holding area risk benefits competitions alternative discussed with the patient. Patient agreed to proceed for the procedure signed the consent. Patient taken to the procedure area. Timeout was completed. A total number of 14 - trigger point area was marked with a sterile marker. After ChloraPrep used to clean the area. Critical pause was taken. Using 25-gauge 1-1/2 inch needle entered in each market site one mL of block solution injected at each level. The block solution containing 15 ml of 0.5% preservative-free ropivacaine with Kenlog 80 MG. Needle removed intact skin cleaned and Band-Aid applied. Patient tolerated the procedure well. Disposition: Patient discharge home after meeting the discharge criteria from the recovery. Patient scheduled to follow up with the pain clinic in 4 weeks for follow-up visit.
[2022-10-21 09:58] VITALS: BP 142/78; PULSE 87
== END ==
LOC: ORPAIN 08:48
PROVIDERS: ATTEND Anesthesiology
DX: M54.50 Low back pain, unspecified (principal); M43.16 Spondylolisthesis, lumbar region; M51.36 Other intervertebral disc degeneration, lumbar region; M54.16 Radiculopathy, lumbar region; M79.18 Myalgia, other site
CPT/HCPCS: 20552; 20553; J3301; J2795

== ENCOUNTER 2023-01-25 09:25 | Day surgery (SDC) | payer BC ==
[~2023-01-25 09:25] MED LIST changes: -LACTATED RINGERS 1,000 ML IV ONE; -ROPIVACAINE 5 MG/ML 20 ML AMPULE ONE; -TRIAMCINOLONE ACETONIDE 40 MG/ML 1 ML VIAL ONE
[2023-01-25 09:49] VITALS: TEMP 98.6
[2023-01-25] MEDS ORDERED: fentaNYL (PF) 50 MCG/ML 2 ML AMP ONE (10:05)
[2023-01-25] MEDS ORDERED: methylPREDNISolone ACETATE 40 MG/ML 1 ML VIAL ONE (10:05)
[2023-01-25] MEDS ORDERED: IOPAMIDOL M200 10 ML VIAL ONE (10:05)
[2023-01-25] MEDS ORDERED: MIDAZOLAM 2 MG/2 ML VIAL ONE (10:05)
--- NOTE | 2023-01-25 10:15 | P.PCN ---
Date of Procedure: 01/25/23 Description of Procedure: PREOPERATIVE DIAGNOSIS: lumbar radiculopathy POSTOPERATIVE DIAGNOSIS: Lumbar radiculopathy PROCEDURE 1. Lumbar epidural steroid injection under fluoroscopic guidance at the L4-L5 level. 2. Lumbar epidurogram. Imaging: Fluoroscopy was used, images where saved to the medical record ANESTHESIA: Medication Administered by: Nurse Sedation Type: Moderate sedation Sedation Supervision start time: 1010 Sedation Supervision end time: 101 EBL: Minimal PROCEDURE INDICATION: The patient with low back pain and radiculitis symptoms unresponsive to conservative treatment. Fluoroscopy was used to optimize visualization of the needle placement and to maximize safety. PROCEDURE DESCRIPTION / TECHNIQUE: The patient was seen and identified in the preoperative area. Risks, benefits, complications including but not limited to infections, bleeding, allergic reaction to medications, nerve damage and incomplete pain relief, as well as alternatives to the procedure were discussed with the patient. The patient agreed to proceed with the procedure and signed the consent. IV was started if indicated above, and vital signs were stable. Patient was taken to the OR and time out was completed. The patient was placed in the prone position on procedure table and a pillow was placed under the abdomen to reduce lumbar lordosis. The lumbosacral area was prepped and draped in the usual sterile fashion. Vitals were closely monitored during the procedure. Using anterior-posterior fluoroscopy, the L4-L5 interlaminar space was identi fied and the skin over this site was marked and then infiltrated with 1% lidocaine subcutaneously. Subsequently, a 20-gauge Tuohy epidural needle was inserted and advanced toward the epidural space using the Loss of resistance technique and guided by AP and lateral fluoroscopy. The correct needle position in the epidural space was verified with the injection of 1 mL of Omnipaque 180 contrast to observe an acceptable epidurogram, after negative aspiration for blood and CSF and in the absence of paresthesias. Again after negative aspiration, a 3 ml mixture containing 40mg of depomedrol and 2 ml of preservative free Normal Saline was injected and a washout of epidurogram was seen. Needle was withdrawn intact, skin was cleansed, and bandages were applied. COMPLICATIONS: None DISPOSITION / PLANS: The patient was placed in a supine position and transferred to the recovery area in a stable condition for observation. There was no evidence of lower extremity motor or sensory deficit after the procedure. Patient was discharged from the recovery room after meeting discharge criteria. Home discharge instructions were given to the patient by the staff. The patient was reexamined prior to discharge. The patient will follow up as directed.
[2023-01-25] MEDS ORDERED: LACTATED RINGERS 1,000 ML IV ONE (10:20)
[2023-01-25 10:25] VITALS: BP 120/88; PULSE 76; RESP 16
--- NOTE | 2023-01-25 10:25 | FL ---
EXAMINATION TYPE: FL guided pain mgmt statistic DATE OF EXAM: 01/25/2023 HISTORY: Fluoroscopy time 1 seconds of fluoroscopy provided. .[id number] DAP IMPRESSION: 1. Fluoroscopy time.
== END 2023-01-25 10:45 | disposition home or self-care (01) ==
LOC: ORPAIN 09:25
PROVIDERS: ATTEND Hospitalist
DX: M54.16 Radiculopathy, lumbar region (principal); Z88.8 Allergy status to other drugs, medicaments and biological substances
CPT/HCPCS: 62323; J2250; J1030; J3010; Q9966

== ENCOUNTER → 2023-04-07 | Outpatient (CLI) | payer BC ==
[2023-04-07 10:29] VITALS: BP 125/86; PULSE 86; RESP 18; TEMP 98.5
--- NOTE | 2023-04-07 15:01 | P.PAINPG ---
PQRS Measure Charge Sheet Comment: A 47 yr old female with a history of severe and chronic LBP secondary to lumbar DDD and spondylosis with facet arthropathy without myelopathy presents today for evaluation s/p RUSSELL L4-L5. Pt states she experienced 90 % pain relief x 8 wks s/p procedure. Pain level is provoked at 6/10 in intensity, constant, localized in the lumbar spine, sharp in character w shooting towards the BL hips, buttocks. Pain is provoked by over activity. Pain is alleviated with Pt x 4 wks which she is currently in, heat, ice, medications, repositioning and rest. Interventional pain procedures completed include RUSSELL L4-L5 Patient is currently on Ibu Patient denies any side effects of the medication(s), denies excessive kristina wsiness or sleepiness, denies suicidal ideation and reports that the current pain medication is helping to control the pain and improve activities of daily living. Patient denies any motor or sensory deficits. Patient denies any fever or night sweats, denies any change in the bowel movements or urination. Physical Examination: -Constitutional: Cooperative. Not in acute distress . - Neurologic: Cranial nerve II to XII intact. No focal neurological deficits. - Psychatric: Alert & oriented x 3. Matching mood & appropriate affect. Judgment and insight intact. - Musculoskeletal: Cervical spine: Muscle bulk/ tone/ strength in the bilateral upper extremities normal Vertebral body tenderness to palpation over Spurling test positive Distraction test positive Facet loading test positive TTP Thoracic spine Muscle bulk / tone/ strength in the bilateral paraspinal muscles normal Vertebral body tender to palpation over Facet loading test positive TTP Lumbar spine: Motor bulk/ tone/ strength lower extremities , thigh and legs : 5/5 Deep tendon reflexes : Normal Knee Jerk. Normal Ankle Jerk . Vertebral body tenderness to palpation over L4 Jimenez Test positive Lumbar Facet Loading Test positive Straight Leg Raise: positive at <45 degrees right side/ left side Gaenslen's Test positive Sacral spine : Severe tenderness over the Sacroiliac joint: right side / left side Range of motion: Flexion of the lumbar spine <60 degrees Range of motion: Extension of the lumbar spine <20 degrees Gaenslen's Test positive right side / left side Malcolm test: positive right side / left side Thigh Thrust Test positive right side / left side Sacral Thrust Test positive right side / left side Assessment and plan: Chronic LBP secondary to lumbar DDD, spondylosis with facet arthropathy without myelopathy Recommendation of RUSSELL L4-L5 #2. May need a series of injections, up to 4 within a 12 mo period, for optimal pain relief. Risks, benefits of procedure discussed and pt verbalized understanding. Admits to anticoagulant use or medical history of diabetes. Protocol for discontinuation/ continuation of medications diana procedure discussed. Minimal anesthesia provided, if clinically indicated, consisting of Versed and Fentanyl. All questions answered. I have spent less than 30 minutes on patient care today. Dr Anthony was available by phone for the evaluation of this patient. The time was used to review the medical records including relevant urine studies and Prescription history (MAPs), review of the available imaging, evaluation and examination of the patient, coordination of care with the medical staff and if applicable referring physicians, as well as creation of the medical record PQRS Narrative: Smoking Status Former smoker Hx Alcohol Use (MH) No Home Medications: Ambulatory Orders Ibuprofen 200 mg PO DIRECTED PRN 08/06/19 hydroCHLOROthiazide 25 mg PO QAM 08/06/19 Albuterol Inhaler [Ventolin Hfa Inhaler] 1 puff INHALATION DIRECTED PRN 04/14/22 Breeza Inhaler 1 puff IH QAM 04/14/22 Potassium Chloride [K-Tab ER] 20 meq PO DAILY 04/14/22 Levothyroxine Sodium [Synthroid] 50 mcg PO DAILY 01/20/23 Controlled Substance Measures - Controlled Substance Measures Is patient prescribed a controlled substance at discharge?: No
== END ==
LOC: PNWHC3 10:05
PROVIDERS: ATTEND Specialist
DX: M51.36 Other intervertebral disc degeneration, lumbar region (principal); M47.816 Spondylosis without myelopathy or radiculopathy, lumbar region; G89.29 Other chronic pain; Z87.891 Personal history of nicotine dependence; Z91.048 Other nonmedicinal substance allergy status; Z88.8 Allergy status to other drugs, medicaments and biological substances
CPT/HCPCS: 99211

== ENCOUNTER 2023-06-21 06:22 | Day surgery (SDC) | payer BC ==
[2023-06-21] MEDS ORDERED: LACTATED RINGERS 1,000 ML IV SCH (06:37)
[2023-06-21 06:43] VITALS: TEMP 97.8
[2023-06-21] MEDS ORDERED: TRIAMCINOLONE ACETONIDE 40 MG/ML 1 ML VIAL ONE (07:15)
[2023-06-21] MEDS ORDERED: ROPIVACAINE 5MG/ML 20ML VIAL ONE (07:15)
[2023-06-21] MEDS ORDERED: IOPAMIDOL M200 10 ML VIAL ONE (07:15)
[2023-06-21 07:31] VITALS: BP 121/71; PULSE 72; RESP 16
--- NOTE | 2023-06-21 08:15 | P.PCN ---
Date of Procedure: 06/21/23 Surgeon: Joselin Graves Pathology: none sent Condition: stable Disposition: PACU Description of Procedure: PREOPERATIVE DIAGNOSIS: Lumber Degenerative Disc Diseases. POSTOPERATIVE DIAGNOSIS: Lumbar Degenerative Disc Diseases PROCEDURE 1. Lumbar epidural steroid injection under fluoroscopic guidance at the L4-5 level. 2. Lumbar epidurogram. ANESTHESIA: Local with 1% lidocaine; and IV moderate conscious sedation with Versed and fentanyl EBL: Minimal PROCEDURE DESCRIPTION / TECHNIQUE: The patient was seen and identified in the preoperative area. Risks, benefits, complications including but not limited to infections ,bleeding ,allergic reaction to the medications ,nerve damage and not complete pain relief , and alternatives were discussed with the patient. The patient agreed to proceed with the procedure and signed the consent. IV was started, and vital signs were stable. Patient was taken to the OR and time out was completed. The patient was placed in the prone position on procedure table and a pillow was placed under the abdomen to reduce lumbar lordosis. The lumbosacral area was prepped and draped in the usual sterile fashion with ChloraPrep.Patient was closely monitored during the procedure. Conscious sedation was used during the procedure to decrease patients anxiety. Vital signs were monitered during the entire procedure. Using anterior-posterior fluoroscopy, the L4-5 interlaminar space was identified and the skin over this site was marked and then infiltrated with 1% lidocaine subcutaneously. Subsequently, a 20-gauge Tuohy epidural needle was inserted and advanced toward the epidural space using the Loss of resistance to air technique and guided by AP and lateral fluoroscopy. The correct needle position in the epidural space was verified with the injection of 1 mL of the water soluble contrast dye Omnipaque 180 contrast and observing an excellent epidurogram with the epidural spread of the dye, after negative aspiration for blood and CSF and in the absence of paresthesias. Again after negative aspiration, a 8 ml mixture containing 40 mg of Kenalog and 5 ml of preservative free Normal Saline, and 2 ml of preservative free Ropivacaine 0.5% solution was injected and a washout of epidurogram was seen. Needle was withdrawn intact, skin was cleansed, and bandages were applied. patient tolerated procedure well and was transferred to PACU in stable condition.A copy of the needle placement picture was saved to the fluoroscopy machine. COMPLICATIONS: None
--- NOTE | 2023-06-21 09:23 | FL ---
Intraoperative/procedural fluoroscopic services were provided. Total fluoroscopy time is 1.7 seconds with a total of 2 submitted images to PACS. Please see the operative/procedural note for further deta ils. DAP: 0.92418 mGym2
== END 2023-06-21 07:45 | disposition home or self-care (01) ==
LOC: ORPAIN 06:22
PROVIDERS: ATTEND Anesthesiology
DX: M51.36 Other intervertebral disc degeneration, lumbar region (principal); F41.9 Anxiety disorder, unspecified; Z88.8 Allergy status to other drugs, medicaments and biological substances
CPT/HCPCS: 62323; J3301; Q9966; J2795

== ENCOUNTER 2023-08-04 09:25 | Day surgery (SDC) | payer BC ==
[2023-08-01 15:43] VITALS: BMI 29.0
[2023-08-04 09:54] VITALS: RESP 16; TEMP 97.3
[2023-08-04] MEDS ORDERED: methylPREDNISolone ACETATE 80 MG/ML 1 ML VIAL ONE (10:06)
[2023-08-04] MEDS ORDERED: IOPAMIDOL M200 10 ML VIAL ONE (10:06)
--- NOTE | 2023-08-04 10:16 | P.PCN ---
Date of Procedure: 08/04/23 Procedure(s) Performed: PREOPERATIVE DIAGNOSIS: 1-Lumbar radiculopathy . 2-lumbar degenerative disc disease. 3-lumbar spondylosis with lumbar facet arthropathy without myelopathy POSTOPERATIVE DIAGNOSIS: 1-lumbar radiculopathy. 2-lumbar degenerative disc disease. 3-lumbar spondylosis with facet arthropathy without myelopathy PROCEDURE 1. Transforaminal epidural steroid injection under fluoroscopic guidance at bilateral L4-5 level. (Fluoroscopy images stored on file in the radiology Department ) 2. Lumbar epidurogram . ANESTHESIA: Local with 1% lidocaine 3 ml. EBL: Minimal PROCEDURE INDICATION: The patient with low back pain and radiculopathy symptoms unresponsive to conservative treatment. PROCEDURE DESCRIPTION / TECHNIQUE: The patient was seen and identified in the preoperative area. Risks, benefits, complications, and alternatives were discussed with the patient. The patient agreed to proceed with the procedure and signed the consent. IV was started, and vital signs were stable. Patient was taken to the OR and time out was completed. The patient was placed in the prone position on procedure table and a pillow was placed under the abdomen to reduce lumbar lordosis. The lumbosacral area was prepped and draped in the usual sterile fashion. Critical pause was taken. Vital signs were closely monitored during the procedure. Using oblique fluoroscopy, the chin of the ``Melchor dog at right L4-5 level was identified, and the skin and deeper tissues just below was localized with 1% lidocaine. Subsequently, a 22-gauge 3.5-inch spinal needle was advanced under a tunneled view fluoroscopic guidance just underneath the chin of the `Tejasy dog at the right L4-5 Under lateral fluoroscopy, the needle was then advanced to the posterior border of the interforaminal space. After negative aspiration of CSF and blood and with no paresthesias, 1 mL Isovue 200 contrast dye was injected excellent epidurogram and outlining of the nerve root Subsequently, 3 mL of block solution containing 40 mg Depo-Medrol and 2 mL of 0.9% normal saline PF was injected. Needle was removed and the same procedure was repeated at the left L4-5 level . At the end of the procedure, skin was cleansed, and bandages were applied. COMPLICATIONS:none DISPOSITION / PLANS: The patient was placed in a supine position and transferred to the recovery area in a stable condition for observation. There was no evidence of lower extremity motor or sensory deficit after the procedure. Patient was discharged from the recovery room after meeting discharge criteria. Home discharge instructions were given to the patient by the staff. The patient was reexamined prior to discharge.
--- NOTE | 2023-08-04 10:25 | FL ---
EXAMINATION TYPE: FL guided pain mgmt statistic DATE OF EXAM: 08/04/2023 HISTORY: Fluoroscopy time Total dose area product (DAP) in uGy*m?, mGy*cm? (or similar): 0.04236 IMPRESSION: 1. Fluoroscopy time.
[2023-08-04 10:36] VITALS: BP 123/83; PULSE 77
== END 2023-08-04 10:41 | disposition home or self-care (01) ==
LOC: ORPAIN 09:25
PROVIDERS: ATTEND Specialist
DX: M51.16 Intervertebral disc disorders with radiculopathy, lumbar region (principal); M47.26 Other spondylosis with radiculopathy, lumbar region; G89.29 Other chronic pain
CPT/HCPCS: 64483; J1040; Q9966

== ENCOUNTER → 2023-08-25 | Outpatient (CLI) | payer BC ==
[2023-08-25 10:11] VITALS: BP 118/71; PULSE 76; RESP 16; TEMP 98.2
--- NOTE | 2023-08-25 15:03 | P.PAINPG ---
PQRS Measure Charge Sheet Comment: A 47 yr old female with a history of severe and chronic LBP secondary to lumbar DDD and spondylosis with facet arthropathy without myelopathy presents today for evaluation s/p BL TFESI L4-L5 #1. Pt states she experienced 95 % pain relief x 2-3 wks s/p procedure. Pt states she can stand/ walk for approx 30 min, whereas before she could only endure 10 min of standing/ walking before provoking intense pain. Pain level is provoked at 6/10 in intensity, constant, localized in the lumbar spine, sharp in character without shooting pain. Pain is provoked by over activity. Pain is alleviated with PT x 6 wks from Jun-Jul 2023, heat, ice, medications, repositioning and rest. Oswestry axial pain score of 22. Interventional pain procedures completed include RUSSELL L4-L5 x2, BL TFESI L4-L5 x1 Patient is currently on Ibu Patient denies any side effects of the medication(s), denies excessive drowsiness or sleepiness, denies suicidal ideation and reports that the current pain medication is helping to control the pain and improve activities of daily living. Patient denies any motor or sensory deficits. Patient denies any fever or night sweats, denies any change in the bowel movements or urination. Physical Examination: -Constitutional: Cooperative. Not in acute distress . - Neurologic: Cranial nerve II to XII intact. No focal neurological deficits. - Psychatric: Alert & oriented x 3. Matching mood & appropriate affect. Judgment and insight intact. - Musculoskeletal: Cervical spine: Muscle bulk/ tone/ strength in the bilateral upper extremities normal Vertebral body tenderness to palpation over Spurling test positive Distraction test positive Facet loading test positive TTP Thoracic spine Muscle bulk / tone/ strength in the bilateral paraspinal muscles normal Vertebral body tender to palpation over Facet loading test positive TTP Lumbar spine: Motor bulk/ tone/ strength lower extremities , thigh and legs : 5/5 Deep tendon reflexes : Normal Knee Jerk. Normal Ankle Jerk . Vertebral body tenderness to palpation over L4 Jimenez Test positive Lumbar Facet Loading Test positive over BL L4-L5, L5-S1 Straight Leg Raise: positive at <45 degrees right side/ left side Gaenslen's Test positive Sacral spine : Severe tenderness over the Sacroiliac joint: right side / left side Range of motion: Flexion of the lumbar spine <60 degrees Range of motion: Extension of the lumbar spine <20 degrees Gaenslen's Test positive right side / left side Malcolm test: positive right side / left side Thigh Thrust Test positive right side / left side Sacral Thrust Test positive right side / left side Assessment and plan: Chronic LBP secondary to lumbar DDD, spondylosis with facet arthropathy without myelopathy Recommendation of BL MBB L4-L5, L5-S1 #1. May need a series of injections, up until RFA, for optimal pain relief. Risks, benefits of procedure discussed and pt verbalized understanding. Admits to anticoagulant use or medical history of diabetes. Protocol for discontinuation/ continuation of medications diana procedure discussed. Minimal anesthesia provided, if clinically indicated, consisting of Versed and Fentanyl. All questions answered. I have spent less than 30 minutes on patient care today. Dr Anthony was available by phone for the evaluation of this patient. The time was used to review the medical records including relevant urine studies and Prescription history (MAPs), review of the available imaging, evaluation and examination of the patient, coordination of care with the medical staff and if applicable referring physicians, as well as creation of the medical record PQRS Narrative: Smoking Status Former smoker Hx Alcohol Use (MH) No Home Medications: Ambulatory Orders Ibuprofen 200 mg PO DIRECTED PRN 08/06/19 hydroCHLOROthiazide 25 mg PO QAM 08/06/19 Albuterol Inhaler [Ventolin Hfa Inhaler] 1 puff INHALATION DIRECTED PRN 04/14/22 Breeza Inhaler 1 puff IH QAM 04/14/22 Potassium Chloride [K-Tab ER] 20 meq PO DAILY 04/14/22 Levothyroxine Sodium [Synthroid] 50 mcg PO DAILY 01/20/23 Controlled Substance Measures - Controlled Substance Measures Is patient prescribed a controlled substance at discharge?: No
== END ==
LOC: PNWHC3 09:19
PROVIDERS: ATTEND Specialist
DX: M51.37 Other intervertebral disc degeneration, lumbosacral region (principal); M47.817 Spondylosis without myelopathy or radiculopathy, lumbosacral region; G89.29 Other chronic pain; Z87.891 Personal history of nicotine dependence; Z88.8 Allergy status to other drugs, medicaments and biological substances; Z91.09 Other allergy status, other than to drugs and biological substances; Z91.048 Other nonmedicinal substance allergy status
CPT/HCPCS: 99211

== ENCOUNTER 2023-09-15 09:38 | Day surgery (SDC) | payer BC ==
[2023-09-15] MEDS ORDERED: LACTATED RINGERS 1,000 ML IV ONE (09:50)
[2023-09-15 10:00] VITALS: RESP 18; TEMP 98
[2023-09-15] MEDS ORDERED: methylPREDNISolone ACETATE 80 MG/ML 1 ML VIAL ONE (10:15)
[2023-09-15] MEDS ORDERED: fentaNYL (PF) 50 MCG/ML 2 ML AMP ONE (10:15)
[2023-09-15] MEDS ORDERED: MIDAZOLAM 2 MG/2 ML VIAL ONE (10:15)
[2023-09-15] MEDS ORDERED: ROPIVACAINE 5MG/ML 20ML VIAL ONE (10:15)
--- NOTE | 2023-09-15 10:36 | P.PCN ---
Date of Procedure: 09/15/23 Procedure(s) Performed: PREOPERATIVE DIAGNOSIS : 1- Lumbar spondylosis with Facet Arthropathy without myelopathy . 2- Lumber degenerative disc disease POSTOPERATIVE DIAGNOSIS: 1- Lumbar spondylosis with Facet Arthropathy without myelopathy . 2- Lumber degenerative disc disease PROCEDURE: Diagnostic bilateral L3 , L4 , and L5 medial branch block under fluoroscopy guidance(fluoroscopy images available in the radiology Department ) ( To target the facet joint between Bilateral L4-5 , and L5-S1 ) ANESTHESIA : moderate sedation with intravenous Versed 2 mg and Fentanyl 100 mcg. ( sedation was started at 1018 ,ended at 10:33 ) EBL: Minimal COMPLICATION: None PROCEDURE INDICATION: Chronic low back pain secondary to Facet arthropathy unresponsive to conservative treatment. PROCEDURE DESCRIPTION: the patient was seen and identified in the preop holding area , risks and benefits and possible complications of the procedure and alternative were discussed with the patient, and the patient agreed to proceed with the procedure and signed the consent and vital signs monitored during the procedure and fluoroscopy was used to maximize the benefit and accuracy of the needle placement, and sedation was given to decrease patient anxiety, patient was taken to the procedure room and placed in prone position vital signs monitored in the back prepped with chlorhexidine X3 then under strict sterile technique using a right oblique fluoroscopy ,the junction of the transverse process and the superior articulating process of the right L3 , L4 , and L5 vertebra which corresponding to the fluoroscopy image of the eye of the Melchor dog on the block side for the medial branches and subsequently , after local infiltration of skin and subcu tissuies with Ropivacaine 0.5 % , one mL at each level ,then 22-gauge Quincke-type needles , 3 needle was used , each one of them placed at the junction of the base of the transverse process and the superior articular process at the appropriate level, and the needle was advanced until the periosteum contacted, needle placement confirmed with AP oblique and lateral view and after appropriate needle placement confirmed, and after negative aspiration for heme and CSF and there was no paresthesia 1-1/2 mL of Ropivacaine 0.5% mixed with 40 mg Depo-Medrol , then half mL injected at each level after negative aspiration the needle subsequently removed and the same procedure repeated for the left side at left side at L3 , L4 and L5 levels. At the end of the procedure and the needles removed and a bandage applied after the skin was cleaned the cleaning solution patient taken to recovery room in stable condition and monitors in the recovery room for 20-30 minutes and discharged home in stable condition after discharge criteria met and patient will follow up with the pain clinic in 2-4 weeks
[2023-09-15] MEDS ORDERED: IV FLUID CONTINUATION 1,000 ML IV ONE ×2 (10:43)
[2023-09-15 11:08] VITALS: BP 125/87; PULSE 79
--- NOTE | 2023-09-15 11:11 | FL ---
EXAMINATION TYPE: FL guided pain mgmt statistic DATE OF EXAM: 09/15/2023 HISTORY: Fluoroscopy time Total dose area product (DAP) in uGy*m?, mGy*cm? (or similar): 0.82123 IMPRESSION: 1. Fluoroscopy time.
== END 2023-09-15 11:15 | disposition home or self-care (01) ==
LOC: ORPAIN 09:38
PROVIDERS: ATTEND Specialist
DX: M51.36 Other intervertebral disc degeneration, lumbar region (principal); M47.816 Spondylosis without myelopathy or radiculopathy, lumbar region; G89.29 Other chronic pain; Z88.8 Allergy status to other drugs, medicaments and biological substances; Z77.120 Contact with and (suspected) exposure to mold (toxic); Z91.048 Other nonmedicinal substance allergy status; Z90.710 Acquired absence of both cervix and uterus
CPT/HCPCS: 64493; 64494 ×2; 99152; J2250; J1040; J3010; J2795

== ENCOUNTER → 2023-10-25 | Outpatient (CLI) | payer BC ==
[2023-10-25 08:57] VITALS: BP 137/79; PULSE 91; RESP 15; TEMP 97.2
--- NOTE | 2023-10-25 12:58 | P.PAINPG ---
PQRS Measure Charge Sheet Comment: A 48 yr old female with a history of severe and chronic LBP secondary to lumbar DDD and spondylosis with facet arthropathy without myelopathy presents today for evaluation s/p BL MBB L4-L5, L5-S1 #1. Pt states she experienced 95 % pain relief x 24 hrs s/p procedure. Pain level is provoked at 8/10 in intens ity, constant, localized in the lumbar spine, predominantly axial, sharp in character without shooting pain. Pain is provoked by over activity. Pain is alleviated with PT x 6 wks from Jun-Jul 2023, alternating heat & ice, medications, repositioning and rest. Oswestry axial pain score of 22. Interventional pain procedures completed include RUSSELL L4-L5 x2, BL TFESI L4-L5 x1, BL MBB L3-L5 x1 Patient is currently on Ibu Patient denies any side effects of the medication(s), denies excessive drowsiness or sleepiness, denies suicidal ideation and reports that the current pain medication is helping to control the pain and improve activities of daily living. Patient denies any motor or sensory deficits. Patient denies any fever or night sweats, denies any change in the bowel movements or urination. Physical Examination: -Constitutional: Cooperative. Not in acute distress . - Neurologic: Cranial nerve II to XII intact. No focal neurological deficits. - Psychatric: Alert & oriented x 3. Matching mood & appropriate affect. Judgment and insight intact. - Musculoskeletal: Cervical spine: Muscle bulk/ tone/ strength in the bilateral upper extremities normal Vertebral body tenderness to palpation over Spurling test positive Distraction test positive Facet loading test positive TTP Thoracic spine Muscle bulk / tone/ strength in the bilateral paraspinal muscles normal Vertebral body tender to palpation over Facet loading test positive TTP Lumbar spine: Motor bulk/ tone/ strength lower extremities , thigh and legs : 5/5 Deep tendon reflexes : Normal Knee Jerk. Normal Ankle Jerk . Vertebral body tenderness to palpation over L4 Jimenez Test positive Lumbar Facet Loading Test positive over BL L4-L5, L5-S1 Straight Leg Raise: positive at <45 degrees right side/ left side Gaenslen's Test positive Sacral spine : Severe tenderness over the Sacroiliac joint: right side / left side Range of motion: Flexion of the lumbar spine <60 degrees Range of motion: Extension of the lumbar spine <20 degrees Gaenslen's Test positive right side / left side Malcolm test: positive right side / left side Thigh Thrust Test positive right side / left side Sacral Thrust Test positive right side / left side Assessment and plan: Chronic LBP secondary to lumbar DDD, spondylosis with facet arthropathy without myelopathy Recommendation of BL MBB L4-L5, L5-S1 #2. May need a series of injections, up until RFA, for optimal pain relief. Risks, benefits of procedure discussed and pt verbalized understanding. Admits to anticoagulant use or medical history of diabetes. Protocol for discontinuation/ continuation of medications diana procedure discussed. Minimal anesthesia provided, if clinically indicated, consisting of Versed and Fentanyl. All questions answered. I have spent less than 30 minutes on patient care today. Dr Anthony was available by phone for the evaluation of this patient. The time was used to review the medical records including relevant urine studies and Prescription history (MAPs), review of the available imaging, evaluation and examination of the patient, coordination of care with the medical staff and if applicable referring physicians, as well as creation of the medical record PQRS Narrative: Smoking Status Former smoker Hx Alcohol Use (MH) No Home Medications: Ambulatory Orders Ibuprofen 200 mg PO DIRECTED PRN 08/06/19 hydroCHLOROthiazide 25 mg PO QAM 08/06/19 Albuterol Inhaler [Ventolin Hfa Inhaler] 1 puff INHALATION DIRECTED PRN 04/14/22 Breeza Inhaler 1 puff IH QAM 04/14/22 Potassium Chloride [K-Tab ER] 20 meq PO DAILY 04/14/22 Levothyroxine Sodium [Synthroid] 50 mcg PO DAILY 01/20/23 Controlled Substance Measures - Controlled Substance Measures Is patient prescribed a controlled substance at discharge?: No
== END ==
LOC: PNWHC3 08:39
PROVIDERS: ATTEND Specialist
DX: M51.37 Other intervertebral disc degeneration, lumbosacral region (principal); M47.817 Spondylosis without myelopathy or radiculopathy, lumbosacral region; G89.29 Other chronic pain; Z87.891 Personal history of nicotine dependence; Z88.8 Allergy status to other drugs, medicaments and biological substances; Z91.09 Other allergy status, other than to drugs and biological substances
CPT/HCPCS: 99211

== ENCOUNTER 2023-11-04 09:42 | Day surgery (SDC) | payer BC ==
[~2023-11-04 09:42] MED LIST changes: +LIDOCAINE 1% (10MG/ML) FOR IV START INTRADERMA PRN
[2023-11-04 10:06] VITALS: TEMP 97.8
[2023-11-04] MEDS ORDERED: fentaNYL (PF) 50 MCG/ML 2 ML AMP ONE (10:06)
[2023-11-04] MEDS ORDERED: MIDAZOLAM 2 MG/2 ML VIAL ONE (10:06)
[2023-11-04] MEDS ORDERED: ROPIVACAINE 5MG/ML 20ML VIAL ONE (10:10)
--- NOTE | 2023-11-04 10:19 | P.PCN ---
Date of Procedure: 11/04/23 Surgeon: Joselin Graves Pathology: none sent Condition: stable Disposition: PACU Description of Procedure: PREOPERATIVE DIAGNOSIS : 1- Lumbar spondylosis with Facet Arthropathy without myelopathy . 2- Lumber degenerative disc disease POSTOPERATIVE DIAGNOSIS: 1- Lumbar spondylosis with Facet Arthropathy without myelopathy . 2- Lumber degenerative disc disease PROCEDURE: Diagnostic bilateral L4 -5 , and L5-S1 medial branch block under fluoroscopy Physician: Joselin Graves MD ANESTHESIA: Local with 1% lidocaine;and IV moderate conscious sedation by the anesthesia department EBL: Negligible COMPLICATION: None. PROCEDURE INDICATION: Chronic low back pain secondary to Facet arthropathy unresponsive to conservative treatment. PROCEDURE DESCRIPTION: the patient was seen and identified in the preop holding area , risks and benefits and possible complications of the procedure and alternatives were discussed with the patient, and the patient agreed to proceed with the procedure and signed the consent. IV was started and vital signs monitored during the procedure and fluoroscopy was used to maximize the benefit and accuracy of the needle placement, sedation was given to decrease patient anxiety, patient was taken to the procedure room and placed in prone position vital signs monitored. The patient was brought into the procedure room and placed in prone position. Skin was prepped with Chloraprep and draped in a sterile manner. Lidocaine 1% was used to numb the skin up at the target points that were chosen as follows: at the L5-S1 level which corresponds to the dorsal ramus of L5 the target points were at the superior medial aspect of the sacral ala on each side of the spine on the AP view of fluoroscopy, and for the L3 and L4 medial branches the target points were the connection between the transverse process and the superior articular process of L4 and L5 respectively on the oblique views of fluoroscopy. I used 22-gauge 3-1/2 inch Quincke spinal needles for this procedure and after contacting bone at the target points mentioned above I injected 1 mL of Ropivacaine 0.5% PF . Patient tolerated procedure well. At the end of the procedure the needles removed and a bandage applied after the skin was cleaned the cleaning solution. patient was then taken to the recovery room in stable condition and monitored in the recovery room for 20-30 minutes and discharged home in stable condition after discharge criteria met . A copy of the needle placement picture was saved to the C-arm machine.
[2023-11-04] MEDS ORDERED: LACTATED RINGERS 1,000 ML IV ONE (10:22)
[2023-11-04 10:55] VITALS: BP 121/84; PULSE 74; RESP 15
--- NOTE | 2023-11-04 11:18 | FL ---
EXAMINATION TYPE: FL guided pain mgmt statistic DATE OF EXAM: 11/04/2023 HISTORY: Fluoroscopy time Total dose area product (DAP) in uGy*m?, mGy*cm? (or similar): 0.96361 IMPRESSION: 1. Fluoroscopy time.
== END 2023-11-04 10:55 | disposition home or self-care (01) ==
LOC: ORPAIN 09:42
PROVIDERS: ATTEND Anesthesiology
DX: M47.816 Spondylosis without myelopathy or radiculopathy, lumbar region (principal); M51.36 Other intervertebral disc degeneration, lumbar region; G89.29 Other chronic pain; I10 Essential (primary) hypertension; E03.9 Hypothyroidism, unspecified; J45.909 Unspecified asthma, uncomplicated; Z88.8 Allergy status to other drugs, medicaments and biological substances; Z79.899 Other long term (current) drug therapy; Z79.890 Hormone replacement therapy
CPT/HCPCS: 64493; 64494 ×2; J2250; J3010; J2795

== ENCOUNTER → 2023-11-16 | Outpatient (CLI) | payer BC ==
[2023-11-16 09:32] VITALS: BP 142/82; PULSE 99; RESP 15; TEMP 98.6
--- NOTE | 2023-11-16 14:42 | P.PAINPG ---
PQRS Measure Charge Sheet Comment: A 48 yr old female with a history of severe and chronic LBP secondary to lumbar DDD and spondylosis with facet arthropathy without myelopathy presents today for evaluation s/p BL MBB L4-L5, L5-S1 #2. Pt states she experienced 85 % pain relief x 24 hrs s/p procedure. Pain level is provoked at 7/10 in intensity, constant, localized in the lumbar spine, predominantly axial, sharp in character without shooting pain. Pain is provoked by over activity. Pain is alleviated with PT x 6 wks from Jun-Jul 2023, alternating heat & ice, medications, repositioning and rest. Oswestry axial pain score of 21. Interventional pain procedures completed include RUSSELL L4-L5 x2, BL TFESI L4-L5 x1, BL MBB L3-L5 x2 Patient is currently on Ibu Patient denies any side effects of the medication(s), denies excessive drowsiness or sleepiness, denies suicidal ideation and reports that the current pain medication is helping to control the pain and improve activities of daily living. Patient denies any motor or sensory deficits. Patient denies any fever or night sweats, denies any change in the bowel movements or urination. Physical Examination: -Constitutional: Cooperative. Not in acute distress . - Neurologic: Cranial nerve II to XII intact. No focal neurological deficits. - Psychatric: Alert & oriented x 3. Matching mood & appropriate affect. Judgment and insight intact. - Musculoskeletal: Cervical spine: Muscle bulk/ tone/ strength in the bilateral upper extremities normal Vertebral body tenderness to palpation over Spurling test positive Distraction test positive Facet loading test positive TTP Thoracic spine Muscle bulk / tone/ strength in the bilateral paraspinal muscles normal Vertebral body tender to palpation over Facet loading test positive TTP Lumbar spine: Motor bulk/ tone/ strength lower extremities , thigh and legs : 5/5 Deep tendon reflexes : Normal Knee Jerk. Normal Ankle Jerk . Vertebral body tenderness to palpation over L4 Jimenez Test positive Lumbar Facet Loading Test positive over BL L4-L5, L5-S1 Straight Leg Raise: positive at <45 degrees right side/ left side Gaenslen's Test positive Sacral spine : Severe tenderness over the Sacroiliac joint: right side / left side Range of motion: Flexion of the lumbar spine <60 degrees Range of motion: Extension of the lumbar spine <20 degrees Gaenslen's Test positive right side / left side Malcolm test: positive right side / left side Thigh Thrust Test positive right side / left side Sacral Thrust Test positive right side / left side Assessment and plan: Chronic LBP secondary to lumbar DDD, spondylosis with facet arthropathy without myelopathy Recommendation of BL RFA L4-L5, L5-S1. Exhibited optimal pain relief w previous BL MBB procedures. Risks, benefits of procedure discussed and pt verbalized understanding. Admits to anticoagulant use or medical history of diabetes. Protocol for discontinuation/ continuation of medications diana procedure discussed. Minimal anesthesia provided, if clinically indicated, consisting of Versed and Fentanyl. All questions answered. I have spent less than 30 minutes on patient care today. Dr Anthony was available by phone for the evaluation of this patient. The time was used to review the medical records including relevant urine studies and Prescription history (MAPs), review of the available imaging, evaluation and examination of the patient, coordination of care with the medical staff and if applicable referring physicians, as well as creation of the medical record PQRS Narrative: Smoking Status Former smoker Hx Alcohol Use (MH) No Home Medications: Ambulatory Orders Ibuprofen 200 mg PO DIRECTED PRN 08/06/19 hydroCHLOROthiazide 25 mg PO QAM 08/06/19 Albuterol Inhaler [Ventolin Hfa Inhaler] 1 puff INHALATION DIRECTED PRN 04/14/22 Breeza Inhaler 1 puff IH QAM 04/14/22 Potassium Chloride [K-Tab ER] 20 meq PO DAILY 04/14/22 Levothyroxine Sodium [Synthroid] 50 mcg PO DAILY 01/20/23 Controlled Substance Measures - Controlled Substance Measures Is patient prescribed a controlled substance at discharge?: No
== END ==
LOC: PNWHC3 08:44
PROVIDERS: ATTEND Anesthesiology
DX: M54.50 Low back pain, unspecified (principal); M51.37 Other intervertebral disc degeneration, lumbosacral region; M47.817 Spondylosis without myelopathy or radiculopathy, lumbosacral region; Z88.8 Allergy status to other drugs, medicaments and biological substances; Z91.030 Bee allergy status; Z87.891 Personal history of nicotine dependence
CPT/HCPCS: 99211

== ENCOUNTER 2023-12-30 08:52 | Day surgery (SDC) | payer BC ==
[2023-12-27 14:45] VITALS: BMI 29.1
[2023-12-30 09:11] VITALS: RESP 16; TEMP 97.6
[2023-12-30] MEDS: LACTATED RINGERS 1,000 ML IV SCH (09:15)
[2023-12-30] MEDS ORDERED: MIDAZOLAM 2 MG/2 ML VIAL ONE (09:30)
[2023-12-30] MEDS ORDERED: fentaNYL (PF) 50 MCG/ML 2 ML AMP ONE (09:30)
--- NOTE | 2023-12-30 10:01 | P.PCN ---
Date of Procedure: 12/30/23 Procedure(s) Performed: PREOPERATIVE DIAGNOSIS: 1-Lumbar Spondylosis with Facet Arthropathy without myelopathy. 2- Lumber degenerative disc disease. POSTOPERATIVE DIAGNOSIS: 1- Lumbar Spondylosis with Facet Arthropathy without myelopathy. 2- Lumber degenerative disc disease. PROCEDURES :Bilateral Radiofrequency thermocoagulation, L3 , L4 , and L5 medial branch, with fluoroscopic guidance (fluoroscopy images available in the radiology department) ( to denervate the facet joint at bilateral L4-5 ,and L5-S1 levels ). ANESTHESIA: Monitored anesthesia care as per anesthesia department . EBL: Minimal PROCEDURE INDICATION: The patient with low back pain secondary to lumbar facet arthropathy who had more than 50% relief of her pain with previous diagnostic lumbar medial branch block with bupivacaine. PROCEDURE DESCRIPTION / TECHNIQUE: The patient was seen and identified in the preoperative area. Risks, benefits, complications, including but not limited to risk of infection ,bleeding , allergic reactions to the medications and no comp lete pain releife , and alternatives were discussed with the patient, the patient agreed to proceed with the procedure and signed the consent. IV was started. Vital signs remained stable throughout the procedure. Patient was taken to the OR and time out was completed. The patient was placed in the prone position on the procedure table. The lumber area was prepped and draped in the usual sterile fashion. . Vital signs were closely monitored during the procedure .IV sedation was used during the procedure to decrease patients anxiety. Using AP and then oblique fluoroscopy, the ``eye of the Melchor dog corresponding to the connection between the superior and transverse articular processes of right L3, L4, and L5 were identified, marked, and localized with 1% lidocaine. Subsequently, a 18 -ea radiofrequency cannula with a 10- mm active tip was advanced guided by fluoroscopy to each of the``eyes of the Melchor dog at right L3, L4, and L5. Each site then underwent sensory testing at 50 Hz and 0 to 1 volt and motor testing at 2.5 Hz and 0 to 3 volt with local stimulation, but no radicular symptoms down the legs. Thereafter each sites underwent radiofrequency thermocoagulation at 80 degrees celsius for 90 seconds after injecting 0.5 ml of PF Ropivacaine 1ml, then after the thermocoagulation done , 1 ml of the block solution containing Depo-Medrol 20 mg and 3 ml of Ropivacaine 0.5% was injected at the right L3 , L4 , and L5 , levels after negative aspiration of CSF and blood and with no paresthesias. Cannulas were retracted while injecting lidocaine 1% until the needle is out. The same procedure was repeated at the level of Left L3, L4, and L5 levels. At the end of the procedure, the skin was cleansed and bandages were applied. COMPLICATIONS: No acute complications. DISPOSITION / PLANS: The patient was placed in a supine position and transferred to the recovery area in a stable condition for observation and was discharged from the recovery room after meeting discharge criteria. Home discharge instructions given to the patient by the staff. The patient was reexamined prior to discharge. The patient will schedule a follow up in the clinic in 2-4 weeks.
[2023-12-30] MEDS: IV FLUID CONTINUATION 1,000 ML IV ONE (10:04)
[2023-12-30 10:31] VITALS: BP 122/85; PULSE 70
--- NOTE | 2023-12-30 10:41 | FL ---
EXAMINATION TYPE: FL guided pain mgmt statistic Intraoperative/procedural fluoroscopic services were provided. Total fluoroscopy time is 15.3 seconds with a total of 6 submitted images to PACS. Please s ee the operative/procedural note for further details. DAP: [id number] mGym2
== END 2023-12-30 10:53 | disposition home or self-care (01) ==
LOC: ORPAIN 08:52
PROVIDERS: ATTEND Specialist
DX: M51.36 Other intervertebral disc degeneration, lumbar region (principal); M47.816 Spondylosis without myelopathy or radiculopathy, lumbar region; Z88.8 Allergy status to other drugs, medicaments and biological substances; I10 Essential (primary) hypertension; I73.9 Peripheral vascular disease, unspecified; J45.909 Unspecified asthma, uncomplicated; E07.9 Disorder of thyroid, unspecified; Z79.890 Hormone replacement therapy; Z79.51 Long term (current) use of inhaled steroids; Z90.49 Acquired absence of other specified parts of digestive tract; Z90.710 Acquired absence of both cervix and uterus
CPT/HCPCS: 64635; 64636 ×2; 99152; J2250; J3010

== ENCOUNTER → 2024-01-26 | Outpatient (CLI) | payer BC ==
[2024-01-26 10:52] VITALS: BP 122/89; PULSE 77; RESP 16
--- NOTE | 2024-01-26 14:45 | P.PAINPG ---
PQRS Measure Charge Sheet Comment: A 48 yr old female with a history of severe and chronic LBP secondary to lumbar DDD and spondylosis with facet arthropathy without myelopathy presents today for evaluation s/p BL RFA L4-L5, L5-S1. Pt states she experienced 95 % pain relief s/p procedure. Pain level is provoked at 7/10 in intensity, constant , localized in the R lumbar spine, predominantly axial, stabbing in character without shooting pain. Pain is provoked by over activity. Pain is alleviated with PT x 6 wks from Jun-Jul 2023, alternating heat & ice, medications, repositioning and rest. Oswestry axial pain score of 18. Interventional pain procedures completed include RUSSELL L4-L5 x2, BL TFESI L4-L5 x1, BL RFA L3-L5 (Dec 2023) Patient is currently on Ibu Patient denies any side effects of the medication(s), denies excessive drowsiness or sleepiness, denies suicidal ideation and reports that the current pain medication is helping to control the pain and improve activities of daily living. Patient denies any motor or sensory deficits. Patient denies any fever or night sweats, denies any change in the bowel movements or urination. Physical Examination: -Constitutional: Cooperative. Not in acute distress . - Neurologic: Cranial nerve II to XII intact. No focal neurological deficits. - Psychatric: Alert & oriented x 3. Matching mood & appropriate affect. Judgment and insight intact. - Musculoskeletal: Cervical spine: Muscle bulk/ tone/ strength in the bilateral upper extremities normal Vertebral body tenderness to palpation over Spurling test positive Distraction test positive Facet loading test positive TTP Thoracic spine Muscle bulk / tone/ strength in the bilateral paraspinal muscles normal Vertebral body tender to palpation over Facet loading test positive TTP Lumbar spine: Motor bulk/ tone/ strength lower extremities , thigh and legs : 5/5 Deep tendon reflexes : Normal Knee Jerk. Normal Ankle Jerk . Vertebral body tenderness to palpation over L4 Jimenez Test positive Lumbar Facet Loading Test positive over R L4-L5, L5-S1 Straight Leg Raise: positive at <45 degrees right side/ left side Gaenslen's Test positive Sacral spine : Severe tenderness over the Sacroiliac joint: right side / left side Range of motion: Flexion of the lumbar spine <60 degrees Range of motion: Extension of the lumbar spine <20 degrees Gaenslen's Test positive right side / left side Malcolm test: positive right side / left side Thigh Thrust Test positive right side / left side Sacral Thrust Test positive right side / left side Assessment and plan: Chronic LBP secondary to lumbar DDD, spondylosis with facet arthropathy without myelopathy Recommendation of R iliolumbar ligament injection #1. May need a series of injections for optimal pain relief. Risks, benefits of procedure discussed and pt verbalized understanding. Admits to anticoagulant use or medical history of diabetes. Protocol for discontinuation/ continuation of medications diana procedure discussed. All questions answered. I have spent less than 30 minutes on patient care today. Dr Anthony was available by phone for the evaluation of this patient. The time was used to review the medical records including relevant urine studies and Prescription history (MAPs), review of the available imaging, evaluation and examination of the patient, coordination of care with the medical staff and if applicable referring physicians, as well as creation of the medical record PQRS Narrative: Smoking Status Former smoker Hx Alcohol Use (MH) No Home Medications: Ambulatory Orders Ibuprofen 200 mg PO DIRECTED PRN 08/06/19 hydroCHLOROthiazide 25 mg PO QAM 08/06/19 Albuterol Inhaler [Ventolin Hfa Inhaler] 1 puff INHALATION DIRECTED PRN 04/14/22 Potassium Chloride [K-Tab ER] 20 meq PO DAILY 04/14/22 Levothyroxine Sodium [Synthroid] 50 mcg PO DAILY 01/20/23 Fluticasone/Vilanterol [Breo Ellipta 200-25 Mcg Inhaler] 1 puff INHALATION QAM 12/27/23 methocarbamoL [Robaxin] 500 mg PO TID PRN 30 Days #90 tab 01/26/24 Controlled Substance Measures - Controlled Substance Measures Is patient prescribed a controlled substance at discharge?: No
== END ==
LOC: PNWHC3 09:34
PROVIDERS: ATTEND Specialist
DX: M51.37 Other intervertebral disc degeneration, lumbosacral region (principal); M47.817 Spondylosis without myelopathy or radiculopathy, lumbosacral region; G89.29 Other chronic pain; Z87.891 Personal history of nicotine dependence; Z88.8 Allergy status to other drugs, medicaments and biological substances; Z91.09 Other allergy status, other than to drugs and biological substances; Z91.048 Other nonmedicinal substance allergy status
CPT/HCPCS: 99211

== ENCOUNTER → 2024-03-15 | Day surgery (SDC) | payer BC ==
[~2024-03-15] MED LIST changes: +IOPAMIDOL M200 10 ML VIAL ONE; -LIDOCAINE 1% (10MG/ML) FOR IV START INTRADERMA PRN; +ROPIVACAINE 5MG/ML 20ML VIAL ONE; +methylPREDNISolone ACETATE 40 MG/ML 1 ML VIAL ONE
--- NOTE | 2024-03-15 09:41 | P.PCN ---
Date of Procedure: 03/15/24 Description of Procedure: PREOPERATIVE DIAGNOSIS: myofascial pain POSTOPERATIVE DIAGNOSIS: same PROCEDURE 1. right-sided iliolumbar ligament injection under fluoroscopy Imaging: Fluoroscopy was used, images where saved to the medical record ANESTHESIA: local only EBL: Minimal PROCEDURE INDICATION: patient had a radiofrequency ablation done about 3 weeks ago and has continued pain in the right side compared to left PROCEDURE DESCRIPTION / TECHNIQUE: The patient was seen and identified in the preoperative area. Risks, benefits, complications including but not limited to infections, bleeding, allergic reaction to medications, nerve damage and incomplete pain relief, as well as alternatives to the procedure were discussed with the patient. The patient agreed to proceed with the procedure and signed the consent. in the prone position the area was cleansed over the right lower lumbar area. X-ray was used to identify the structures at L4-L5 and the iliac crest. at that point a 25-gauge spinal needle was used to enter the iliolumbar ligament. 2 mL of contrast was used to identify the ligament and avoid any neurovascular s pread. After that 10 mL of 0.5% ropivacaine along with 40 mg of Depo-Medrol was injected after negative aspiration. The needle was was intact and the patient was sent to the recovery room. COMPLICATIONS: None DISPOSITION / PLANS: The patient was placed in a supine position and transferred to the recovery area in a stable condition for observation. There was no evidence of lower extremity motor or sensory deficit after the procedure. Patient was discharged from the recovery room after meeting discharge criteria. Home discharge instructions were given to the patient by the staff. The patient was reexamined prior to discharge. The patient will follow up as directed.
[2024-03-15 09:44] VITALS: RESP 16; TEMP 97.8
[2024-03-15 10:34] VITALS: BP 137/93; PULSE 76
--- NOTE | 2024-03-15 10:34 | FL ---
EXAMINATION TYPE: FL guided pain mgmt statistic DATE OF EXAM: 03/15/2024 HISTORY: Fluoroscopy time Total dose area product (DAP) in uGy*m?, mGy*cm? (or similar): 0.46608 IMPRESSION: 1. Fluoroscopy time.
== END ==
LOC: ORPAIN 08:58
PROVIDERS: ATTEND Hospitalist
DX: M79.18 Myalgia, other site (principal); Z79.1 Long term (current) use of non-steroidal anti-inflammatories (NSAID); Z88.8 Allergy status to other drugs, medicaments and biological substances
CPT/HCPCS: 20550; Q9966; J2795; J1010

== ENCOUNTER → 2024-04-12 | Outpatient (CLI) | payer BC ==
--- NOTE | 2024-04-12 11:28 | XR ---
EXAMINATION TYPE: XR lumbar spine 2 or 3V DATE OF EXAM: 04/12/2024 10:20 AM CLINICAL INDICATION:Female, 48 years old with history of M51.36 OTHER INTERVERTEBRAL DISC DEGENERATIO N; [facility] COMPARISON: None TECHNIQUE: XR lumbar spine 2 or 3V - Frontal, lateral and coned in L5-S1 lateral views of the spine. FINDINGS: No evidence of any acute osseous pathology. No evidence of loss of vertebral body height i s seen. There is normal alignment of the lumbar vertebral bodies. Scattered disc space narrowing. Mul tilevel marginal osteophyte formation throughout the visualized spine. There is facet joint arthropat hy throughout the spine. Scattered at least mild neural foraminal stenosis. IMPRESSION: 1. No acute fracture. 2. Mild multilevel disc degeneration.
== END | disposition home or self-care (01) ==
LOC: RADXRMAIN 10:08
PROVIDERS: ATTEND Physician Assistant Medical
DX: M51.36 Other intervertebral disc degeneration, lumbar region (principal)
CPT/HCPCS: 72100

== ENCOUNTER → 2024-04-12 | Outpatient (CLI) | payer BC ==
[2024-04-12 09:57] VITALS: BP 162/98; PULSE 77; RESP 16; TEMP 97.5
--- NOTE | 2024-04-12 14:47 | P.PAINPG ---
PQRS Measure Charge Sheet Comment: A 48 yr old female with a history of severe and chronic LBP secondary to lumbar DDD and spondylosis with facet arthropathy without myelopathy presents today for evaluation s/p R iliolumbar ligament injection #1. Pt states she experienced 90 % pain relief x 1 wks s/p procedure. Pain level is provoked at 7/10 in intensity, constant, localized in the R lumbar spine, predominantly axial, stabbing in character without shooting pain. Pain is provoked by over activity. Pain is alleviated with PT x 4 wks which she is currently in, alternating heat & ice, medications, repositioning and rest. Oswestry axial pain score of 18. Interventional pain procedures completed include RUSSELL L4-L5 x2, BL TFESI L4-L5 x1, BL RFA L3-L5 (Dec 2023), R iliolumbar x1 Patient is currently on Ibu Patient denies any side effects of the medication(s), denies excessive drowsiness or sleepiness, denies suicidal ideation and reports that the current pain medication is helping to control the pain and improve activities of daily living. Patient denies any motor or sensory deficits. Patient denies any fever or night sweats, denies any change in the bowel movements or urination. Physical Examination: -Constitutional: Cooperative. Not in acute distress . - Neurologic: Cranial nerve II to XII intact. No focal neurological deficits . - Psychatric: Alert & oriented x 3. Matching mood & appropriate affect. Judgment and insight intact. - Musculoskeletal: Cervical spine: Muscle bulk/ tone/ strength in the bilateral upper extremities normal Vertebral body tenderness to palpation over Spurling test positive Distraction test positive Facet loading test positive TTP Thoracic spine Muscle bulk / tone/ strength in the bilateral paraspinal muscles normal Vertebral body tender to palpation over Facet loading test positive TTP Lumbar spine: Motor bulk/ tone/ strength lower extremities , thigh and legs : 5/5 Deep tendon reflexes : Normal Knee Jerk. Normal Ankle Jerk . Vertebral body tenderness to palpation over L4 Jimenez Test positive Lumbar Facet Loading Test positive over Straight Leg Raise: positive at <45 degrees right side/ left side Gaenslen's Test positive Sacral spine : Severe tenderness over the Sacroiliac joint: right side / left side Range of motion: Flexion of the lumbar spine <60 degrees Range of motion: Extension of the lumbar spine <20 degrees Gaenslen's Test positive right side / left side Malcolm test: positive right side / left side Thigh Thrust Test positive right side / left side Sacral Thrust Test positive right side / left side Assessment and plan: Chronic LBP secondary to lumbar DDD, spondylosis with facet arthropathy without myelopathy Recommendation of lumbar x ray M51.36 May need additional testing if indicated. May benefit from repeat RUSSELL L4-L5 or BL TFESI L4-L5. All questions answered. I have spent less than 30 minutes on patient care today. Dr Anthony was available by phone for the evaluation of this patient. The time was used to review the medical records including relevant urine studies and Prescription history (MAPs), review of the available imaging, evaluation and examination of the patient, coordination of care with the medical staff and if applicable referring physicians, as well as creation of the medical record PQRS Narrative: Smoking Status Former smoker Hx Alcohol Use (MH) No Home Medications: Ambulatory Orders Ibuprofen 200 mg PO DIRECTED PRN 08/06/19 hydroCHLOROthiazide 25 mg PO QAM 08/06/19 Albuterol Inhaler [Ventolin Hfa Inhaler] 1 puff INHALATION DIRECTED PRN 04/14/22 Potassium Chloride [K-Tab ER] 20 meq PO DAILY 04/14/22 Levothyroxine Sodium [Synthroid] 50 mcg PO DAILY 01/20/23 Fluticasone/Vilanterol [Breo Ellipta 200-25 Mcg Inhaler] 1 puff INHALATION QAM 12/27/23 methocarbamoL [Robaxin] 500 mg PO TID PRN 30 Days #90 tab 01/26/24 Controlled Substance Measures - Controlled Substance Measures Is patient prescribed a controlled substance at discharge?: No
== END ==
LOC: PNWHC3 09:34
PROVIDERS: ATTEND Specialist
DX: M51.36 Other intervertebral disc degeneration, lumbar region (principal); M47.816 Spondylosis without myelopathy or radiculopathy, lumbar region; Z87.891 Personal history of nicotine dependence; Z88.8 Allergy status to other drugs, medicaments and biological substances; Z91.09 Other allergy status, other than to drugs and biological substances
CPT/HCPCS: 99211

== ENCOUNTER → 2024-07-20 | Day surgery (SDC) | payer BC ==
[~2024-07-20] MED LIST changes: +TRIAMCINOLONE ACETONIDE 40 MG/ML 1 ML VIAL ONE; -methylPREDNISolone ACETATE 40 MG/ML 1 ML VIAL ONE
[2024-07-20 10:27] VITALS: TEMP 97.8
[2024-07-20 10:56] VITALS: BP 131/87; PULSE 83; RESP 16
--- NOTE | 2024-07-20 10:56 | P.PCN ---
Date of Procedure: 07/20/24 Description of Procedure: Preoperative diagnosis: . Iliolumbar ligament syndrome Postoperative diagnosis: . Iliolumbar ligament syndrome Procedure: Bilateral iliolumbar ligament injection EBL: None Anesthesia: 4 mL of 1% lidocaine: Anesthesia: No sedation Specimen removed: None Fluoroscopic image: Saved to electronic medical records Procedure indication: Patient had a history of chronic low back pain along with sacroiliac joint area, and posterior superior iliac spine area.. Patient tried conservative therapy, scheduled for diagnostic iliolumbar treatment injection for better pain relief. Standard ASA monitoring applied during the procedure for monitoring. Procedure description: Patient was discussed regarding procedure in the preop holding area, risks benefits, complications, alternatives discussed with the patient. Patient agreed to proceed for the procedure. Using anteroposterior fluoroscopic view that side L4-L5 transverse process, and iliac crest identified. Area of iliolumbar ligament trajectory identified on the right side using fluoroscopy. Then using a 25 G 3.5 inch needle used advance in the trajectory of iliolumbar ligament area, 0.5 mL of Isovue-200 injected then after negative aspiration for blood, paresthesia, any other bodily fluids , after that in a fan-shaped manner 6 mL of block solution injected. The block solution containing 5.5 mL of 0.5% ropivacaine with 20 mg of Kenalog. Needle removed intact. Entire procedure repeated on the left side. Needle removed intact. Skin cleaned, and Band-Aids applied. Complications: None DISPOSITION / PLANS: The patient was placed in a supine position and transferred to the recovery area in a stable condition for observation. Patient was discharged from the recovery room after meeting discharge criteria. Home discharge instructions given to the patient by the staff. The patient was reexamined prior to discharge. The patient will schedule a follow up in the clinic in 4 weeks
--- NOTE | 2024-07-20 11:05 | FL ---
EXAMINATION TYPE: FL guided pain mgmt statistic DATE OF EXAM: 07/20/2024 10:58 AM COMPARISON: Pre Operative Images if available both CT/MRI or plain film CLINICAL INDICATION: Female, 48 years old with history of M47.816; TECHNIQUE: FL guided pain mgmt statistic, multiple fluoroscopic images provided for procedure. Total fluoroscopy time: 12 seconds Total submitted images to PACS: 2 DAP: 0.10223 mGym2 Gycm2 uGym2 cGycm2 or equivalent. FINDINGS: Fluoroscopic images during injection for pain management demonstrate multilevel degeneration changes throughout the spine. No evidence for fracture. No acute process identified. IMPRESSION: 1. No evidence for intraoperative complication. 2. Please see the operative/procedural note for further details. [facility], , 07/20/2024 11:03 AM
== END ==
LOC: ORPAIN 10:11
DX: M47.816 Spondylosis without myelopathy or radiculopathy, lumbar region
CPT/HCPCS: 20550

== ENCOUNTER → 2024-12-13 | Outpatient (CLI) | payer OTHER ==
[2024-12-13 09:07] VITALS: BP 128/85; PULSE 80; RESP 16; TEMP 97.1
--- NOTE | 2024-12-13 14:54 | P.PAINPG ---
PQRS Measure Charge Sheet Comment: A 49 yr old female with a history of severe and chronic LBP secondary to radiculopathy, spondylosis with facet arthropathy without myelopathy presents today for evaluation s/p R iliolumbar ligament injection #2. Pt states she experienced 80 % pain relief x 1 mo s/p procedure. Pain level is provoked at 6 /10 in intensity, constant, localized in the R lumbar spine, predominantly axial, stabbing in character w occasional shooting pain up the spine. Pain is provoked by over activity. Pain is alleviated with PT x 6 wks which ended in May 2024, physician guided exercises every other day since May 2024, alternating heat & ice, medications, repositioning and rest. Interventional pain procedures completed include RUSSELL L4-L5 x2, BL TFESI L4-L5 x1, BL RFA L3-L5 (Dec 2023), R iliolumbar x2 (Jul 2024) Patient is currently on Robaxin, Ibu Patient denies any side effects of the medication(s), denies excessive drowsiness or sleepiness, denies suicidal ideation and reports that the current pain medication is helping to control the pain and improve activities of daily living. Patient denies any motor or sensory deficits. Patient denies any fever or night sweats, denies any change in the bowel movements or urination. Physical Examination: -Constitutional: Cooperative. Not in acute distress . - Neurologic: Cranial nerve II to XII intact. No focal neurological deficits. - Psychatric: Alert & oriented x 3. Matching mood & appropriate affect. Judgment and insight intact. - Musculoskeletal: Cervical spine: Muscle bulk/ tone/ strength in the bilateral upper extremities normal Vertebral body tenderness to palpation over Spurling test positive Distraction test positive Facet loading test positive TTP Thoracic spine Muscle bulk / tone/ strength in the bilateral paraspinal muscles normal Vertebral body tender to palpation over Facet loading test positive TTP Lumbar spine: Motor bulk/ tone/ strength lower extremities , thigh and legs : 5/5 Deep tendon reflexes : Normal Knee Jerk. Normal Ankle Jerk . Vertebral body tenderness to palpation over L5 Jimenez Test positive R L5-S1 Lumbar Facet Loading Test positive over Straight Leg Raise: positive at <45 degrees right side/ left side Gaenslen's Test positive Sacral spine : Severe tenderness over the Sacroiliac joint: right side / left side Range of motion: Flexion of the lumbar spine <60 degrees Range of motion: Extension of the lumbar spine <20 degrees Gaenslen's Test positive right side / left side Malcolm test: positive right side / left side Thigh Thrust Test positive right side / left side Sacral Thrust Test positive right side / left side Imaging: MRI non contrast of the lumbar spine from 12/05/24 reviewed Assessment and plan: Chronic LBP secondary to L3-S1 radiculopathy, spondylosis with facet arthropathy without myelopathy Recommendation of medication management and R paramedian RUSSELL L5-S1 #1. Risks, benefits of procedure discussed and patient verbalized understanding. Protocol for discontinuation/continuation of medication surrounding procedure discussed. Robaxin 500mg #90 w 1 RF. All questions answered. I have spent less than 30 minutes on patient care today. Dr Anthony was available by phone for the evaluation of this patient. The time was used to review the medical records including relevant urine studies and Prescription history (MAPs), review of the available imaging, evaluation and examination of the patient, coordination of care with the medical staff and if applicable referring physicians, as well as creation of the medical record - Pain Location Right Lower Back Non-Pharmacological Interventions: Heat, Ice, Inactivity, Physical Therapy, Position/Reposition, Sitting Pharmacological Interventions: Block, Epidural, PRN Medication PQRS Narrative: Smoking Status Former smoker Hx Alcohol Use (MH) No Home Medications: Ambulatory Orders Ibuprofen 200 mg PO DIRECTED PRN 08/06/19 hydroCHLOROthiazide 25 mg PO QAM 08/06/19 Albuterol Inhaler [Ventolin Hfa Inhaler] 1 puff INHALATION DIRECTED PRN 04/14/22 Potassium Chloride [K-Tab ER] 20 meq PO DAILY 04/14/22 Levothyroxine Sodium [Synthroid] 50 mcg PO DAILY 01/20/23 ALPRAZolam [Xanax] 0.25 mg PO DAILY PRN 07/17/24 Cyclobenzaprine [Flexeril] 10 mg PO DAILY 07/17/24 Ergocalciferol [Vitamin D2 (1250 Mcg = 68246 Iu)] 1 tab PO DAILY 07/17/24 Fluticasone/Umeclidin/Vilanter [Trelegy Ellipta 100-62.5-25] 1 inh INHALATION DIRECTED 07/17/24 Montelukast [Singulair] 10 mg PO DAILY 07/17/24 methocarbamoL [Robaxin] 500 mg PO TID PRN 30 Days #90 tab 12/13/24 Controlled Substance Measures - Controlled Substance Measures Is patient prescribed a controlled substance at discharge?: No
== END ==
LOC: PNWHC3 08:48
PROVIDERS: ATTEND Specialist
DX: M47.27 Other spondylosis with radiculopathy, lumbosacral region (principal); G89.29 Other chronic pain; Z87.891 Personal history of nicotine dependence; Z88.8 Allergy status to other drugs, medicaments and biological substances; Z91.048 Other nonmedicinal substance allergy status
CPT/HCPCS: 99211

== ENCOUNTER 2025-01-04 09:01 | Day surgery (SDC) | payer OTHER ==
[~2025-01-04 09:01] MED LIST changes: -IOPAMIDOL M200 10 ML VIAL ONE; -ROPIVACAINE 5MG/ML 20ML VIAL ONE; -TRIAMCINOLONE ACETONIDE 40 MG/ML 1 ML VIAL ONE
[2025-01-04 09:18] VITALS: TEMP 98
[2025-01-04] MEDS ORDERED: IOPAMIDOL M200 10 ML VIAL ONE (09:47)
[2025-01-04] MEDS ORDERED: methylPREDNISolone ACETATE 80 MG/ML 1 ML VIAL ONE (09:47)
--- NOTE | 2025-01-04 09:54 | P.PCN ---
Date of Procedure: 01/04/25 Procedure(s) Performed: PREOPERATIVE DIAGNOSIS: 1- Lumbar radiculopathy. 2-Lumbar spondylosis with Facet arthropathy without myelopathy. POSTOPERATIVE DIAGNOSIS: 1-lumbar Radiculopathy 2-lumbar spondylosis with facet arthropathy without myelopathy. PROCEDURE 1. Lumbar epidural steroid injection under fluoroscopic guidance at the L5-S1 level. (Fluoroscopy imaging was available in radiology department) 2. Lumbar epidurogram. ANESTHESIA: Lidocaine 1% 3 and then only. EBL: Minimal PROCEDURE INDICATION: The patient with low back pain and radiculitis symptoms unresponsive to conservative treatment. Fluoroscopy was used to optimize visualization of the needle placement and to maximize safety. PROCEDURE DESCRIPTION / TECHNIQUE: The patient was seen and identified in the preoperative area. Risks, benefits, complications including but not limited to infections ,bleeding ,allergic reaction to the medications ,nerve damage and not complete pain releife , and alternatives were discussed with the patient. The patient agreed to proceed with the procedure and signed the consent, and vital signs were stable. Patient was taken to the OR and time out was completed. The patient was placed in the prone position on procedure table and a pillow was placed under the abdomen to reduce lumbar lordosis. The lumbosacral area was prepped and draped in the usual sterile fashion.ere closely monitored during the procedure. Vital signs was monitered during the entire procedure. Using anterior-posterior fluoroscopy, the L5-S1 interlaminar space was identified and the skin over this site was marked and then infiltrated with 1% lidocaine subcutaneously. Subsequently, a 20-gauge Tuohy epidural needle was inserted and advanced toward the epidural space using the ``Loss of resistance technique and guided by AP and lateral fluoroscopy. The correct needle position in the epidural space was verified with the injection of 2 mL of the water soluble contrast dye Isovue 200 contrast and observing an excellent epidurogram with the epidural spread of the dye, after negative aspiration for blood and CSF and in the absence of paresthesias. Again after negative aspiration, a 6 ml mixture containing 80 mg of Depo-medrol ( Preservetive Free ), and 2 ml of preservative free Normal Saline, and 2 ml of preservative free lidocaine 1% solution was injected and a washout of epidurogram was seen. Needle was withdrawn intact, skin was cleansed, and bandages were applied. COMPLICATIONS: None DISPOSITION / PLANS: The patient was placed in a supine position and transferred to the recovery area in a stable condition for observation. There was no evidence of lower extremity motor or sensory deficit after the procedure. Patient was discharged from the recovery room after meeting discharge criteria. Home discharge instructions were given to the patient by the staff. The patient was reexamined prior to discharge. The patient will schedule a follow up in the clinic in 2-4 weeks.
[2025-01-04 10:22] VITALS: BP 125/86; PULSE 78; RESP 16
--- NOTE | 2025-01-04 11:53 | FL ---
EXAMINATION TYPE: FL guided pain mgmt statistic DATE OF EXAM: 01/04/2025 11:25 AM COMPARISON: Pre Operative Images if available both CT/MRI or plain film CLINICAL INDICATION: Female, 49 years old with history of PAIN; TECHNIQUE: FL guided pain mgmt statistic, multiple fluoroscopic images provided for procedure. DAP: 0.31399 mGym2 Gycm2 uGym2 cGycm2 or equivalent. FINDINGS: Fluoroscopic images during injection for pain management demonstrate multilevel degeneration changes throughout the spine. No evidence for fracture. No acute process identified. IMPRESSION: 1. No evidence for intraoperative complication. 2. Please see the operative/procedural note for further details. [facility], , 01/04/2025 11:51 AM
== END 2025-01-04 10:33 | disposition home or self-care (01) ==
LOC: ORPAIN 09:01
PROVIDERS: ATTEND Specialist
DX: M47.26 Other spondylosis with radiculopathy, lumbar region (principal); Z88.8 Allergy status to other drugs, medicaments and biological substances; J30.1 Allergic rhinitis due to pollen
CPT/HCPCS: 62323; Q9966; J1010

== ENCOUNTER → 2025-01-24 | Outpatient (CLI) | payer OTHER ==
[2025-01-24 09:06] VITALS: BP 137/89; PULSE 86; RESP 19; TEMP 97.5
--- NOTE | 2025-01-24 15:45 | P.PAINPG ---
PQRS Measure Charge Sheet Comment: A 49 yr old female with a history of severe and chronic LBP secondary to radiculopathy, spondylosis with facet arthropathy without myelopathy presents today for evaluation s/p RUSSELL L5-S1 #1. Pt states she experienced 70 % pain relief x 3 wks s/p procedure. Pain level is provoked at 2-3 /10 in intensity, constant, localized in the R lumbar spine, predominantly axial, stabbing in character w occasional shooting pain up the spine. Pain is provoked by over activity. Pain is alleviated with PT x 6 wks which ended in May 2024, physician guided exercises every other day since May 2024, alternating heat & ice, medications, repositioning and rest. Interventional pain procedures completed include RUSSELL L4-L5 x2, BL TFESI L4-L5 x1, BL RFA L3-L5 (Dec 2023), R iliolumbar x2 (Jul 2024), RUSSELL L5-S1 x1 Patient is currently on Robaxin, Ibu Patient denies any side effects of the medication(s), denies excessive drow siness or sleepiness, denies suicidal ideation and reports that the current pain medication is helping to control the pain and improve activities of daily living. Patient denies any motor or sensory deficits. Patient denies any fever or night sweats, denies any change in the bowel movements or urination. Physical Examination: -Constitutional: Cooperative. Not in acute distress . - Neurologic: Cranial nerve II to XII intact. No focal neurological deficits. - Psychatric: Alert & oriented x 3. Matching mood & appropriate affect. Judgment and insight intact. - Musculoskeletal: Cervical spine: Muscle bulk/ tone/ strength in the bilateral upper extremities normal Vertebral body tenderness to palpation over Spurling test positive Distraction test positive Facet loading test positive TTP Thoracic spine Muscle bulk / tone/ strength in the bilateral paraspinal muscles normal Vertebral body tender to palpation over Facet loading test positive TTP Lumbar spine: Motor bulk/ tone/ strength lower extremities , thigh and legs : 5/5 Deep tendon reflexes : Normal Knee Jerk. Normal Ankle Jerk . Vertebral body tenderness to palpation over L5 Jimenez Test positive R L5-S1 Lumbar Facet Loading Test positive over Straight Leg Raise: positive at <45 degrees right side/ left side Gaenslen's Test positive Sacral spine : Severe tenderness over the Sacroiliac joint: right side / left side Range of motion: Flexion of the lumbar spine <60 degrees Range of motion: Extension of the lumbar spine <20 degrees Gaenslen's Test positive right side / left side Malcolm test: positive right side / left side Thigh Thrust Test positive right side / left side Sacral Thrust Test positive right side / left side Imaging: MRI non contrast of the lumbar spine from 12/05/24 reviewed Assessment and plan: Chronic LBP secondary to L3-S1 radiculopathy, spondylosis with facet arthropathy without myelopathy Will manage residual pain and may RTC on an as needed basis. Robaxin 500mg #90 w 1 RF. All questions answered. I have spent less than 30 minutes on patient care today. Dr Anthony was available by phone for the evaluation of this patient. The time was used to review the medical records including relevant urine studies and Prescription history (MAPs), review of the available imaging, evaluation and examination of the patient, coordination of care with the medical staff and if applicable referring physicians, as well as creation of the medical record - Pain Location Lower Back Pharmacological Interventions: Epidural PQRS Narrative: Smoking Status Former smoker Hx Alcohol Use (MH) No Home Medications: Ambulatory Orders Ibuprofen 200 mg PO DIRECTED PRN 08/06/19 hydroCHLOROthiazide 25 mg PO QAM 08/06/19 Albuterol Inhaler [Ventolin Hfa Inhaler] 1 puff INHALATION DIRECTED PRN 04/14/22 Potassium Chloride [K-Tab ER] 20 meq PO DAILY 04/14/22 Levothyroxine Sodium [Synthroid] 50 mcg PO DAILY 01/20/23 ALPRAZolam [Xanax] 0.25 mg PO DAILY PRN 07/17/24 Ergocalciferol [Vitamin D2 (1250 Mcg = 12393 Iu)] 1 tab PO DAILY 07/17/24 Fluticasone/Umeclidin/Vilanter [Trelegy Ellipta 100-62.5-25] 1 inh INHALATION DIRECTED 07/17/24 methocarbamoL [Robaxin] 500 mg PO TID PRN 30 Days #90 tab 01/24/25 Controlled Substance Measures - Controlled Substance Measures Is patient prescribed a controlled substance at discharge?: No
== END ==
LOC: PNWHC3 08:44
PROVIDERS: ATTEND Specialist
DX: M47.819 Spondylosis without myelopathy or radiculopathy, site unspecified (principal); G89.29 Other chronic pain; Z87.891 Personal history of nicotine dependence; Z88.8 Allergy status to other drugs, medicaments and biological substances; Z91.048 Other nonmedicinal substance allergy status
CPT/HCPCS: 99211